=== PATIENT | male | born 1970 | race Caucasian/White ===

== ENCOUNTER 2020-01-26 12:49 | Emergency (ER) | payer BC, OTHER ==
[2020-01-26 12:56] VITALS: TEMP 97.9
[2020-01-26] MEDS ORDERED: KETOROLAC 15 MG/ML 1 ML VIAL IVP STA (13:13)
[2020-01-26] MEDS ORDERED: SODIUM CHLORIDE 0.9% 1,000 ML IV STA (13:13)
[2020-01-26] MEDS ORDERED: ONDANSETRON 4 MG/2 ML VIAL IVP STA (13:13)
[2020-01-26 13:29] LABS: Basophils % (A) 0 %; Eosinophils # (A) 0.1 k/uL (0-0.7); Eosinophils % (A) 1 %; HCT 47.4 % (39.0-53.0); HGB 15.6 gm/dL (13.0-17.5); Lymphocytes # (A) 0.7 k/uL (1.0-4.8); Lymphocytes % (A) 9 %; MCH 29.1 pg (25.0-35.0); MCHC 32.9 g/dL (31.0-37.0); MCV 88.4 fL (80.0-100.0); Mean Platelet Volume 7.8; Monocytes # (A) 0.4 k/uL (0-1.0); Monocytes % (A) 4 %; Neutrophils % (A) 85 %; Platelet Count 193 k/uL (150-450); RBC 5.37 m/uL (4.30-5.90); RDW 13.5 % (11.5-15.5); WBC 8.2 k/uL (3.8-10.6)
[2020-01-26 13:35] LABS: Appearance,Urine Cloudy (Clear); Bacteria,Urine Rare /hpf; Bilirubin,Urine Negative (Negative); Blood,Urine Large (Negative); Budding Yeast,Urine Many /hpf; Color,Urine Light Red; Glucose,Urine (UA) Negative (Negative); Ketones,Urine 3+ (Negative); Leukocyte Esterase,Urine Negative (Negative); Mucus,Urine Moderate /hpf; Nitrite,Urine Negative (Negative); PH, Urine 5.5 (5.0-8.0); Protein,Urine 1+ (Negative); RBC,Urine >182 /hpf (0-5); Specific Gravity,Urine 1.028 (1.001-1.035); Urobilinogen,Urine <2.0 mg/dL (<2.0)
[2020-01-26 13:39] LABS: ALT 20 U/L (4-49); AST 30 U/L (17-59); African American GFR (CKD) >90 (>60 ml/min/1.73 sqM); Albumin 4.4 g/dL (3.5-5.0); Alkaline Phosphatase 69 U/L (38-126); Amylase 80 U/L (30-110); Anion Gap 10 mmol/L; Blood Urea Nitrogen 16 mg/dL (9-20); Calcium 9.5 mg/dL (8.4-10.2); Carbon Dioxide 20 mmol/L (22-30); Chloride 105 mmol/L (98-107); Glucose 105 mg/dL (74-99); Non-African American GFR(CKD) >90 (>60 ml/min/1.73 sqM); Potassium 4.2 mmol/L (3.5-5.1); Sodium 135 mmol/L (137-145); Total Bilirubin 0.9 mg/dL (0.2-1.3); Total Protein 6.4 g/dL (6.3-8.2)
--- NOTE | 2020-01-26 13:52 | ED ---
General Adult HPI - General Chief complaint: Abdominal Pain Stated complaint: kidney stones Time Seen by Provider: 01/26/20 12:57 Source: patient, RN notes reviewed Mode of arrival: ambulatory Limitations: no limitations - History of Present Illness Initial comments: 49-year-old male with a past medical history of hyperlipidemia, kidney stones presents to the emergency department for a chief complaint of left-sided back and lower abdominal pain. Patient reports that this started this morning. States it feels like her previous kidney stone. Does admit to nausea denies vomiting. Denies any fevers. Denies diarrhea.Patient has no other complaints at this time including shortness of breath, chest pain, nausea or vomiting, headache, or visual changes. - Related Data Home Medications Medication Instructions Recorded Confirmed Citalopram Hydrobromide 40 mg PO DAILY 11/28/13 01/26/20 [Citalopram HBr] Atorvastatin [Lipitor] 20 mg PO DAILY 01/26/20 01/26/20 Previous Rx's Medication Instructions Recorded Ketorolac [Toradol] 10 mg PO TID PRN #9 tab 01/26/20 Ondansetron [Zofran ODT] 4 mg PO Q8HR PRN #15 tab 01/26/20 Tamsulosin [Flomax] 0.4 mg PO DAILY #10 cap 01/26/20 Allergies Allergy/AdvReac Type Severity Reaction Status Date / Time No Known Allergies Allergy Verified 01/26/20 13:43 Review of Systems ROS Statement: Those systems with pertinent positive or pertinent negative responses have been documented in the HPI. ROS Other: All systems not noted in ROS Statement are negative. Past Medical History Past Medical History: Hyperlipidemia History of Any Multi-Drug Resistant Organisms: None Reported Additional Past Surgical History / Comment(s): wisdom teeth out, "toungue clipped when i was a baby." Past Psychological History: Anxiety Smoking Status: Never smoker Past Alcohol Use History: None Reported Past Drug Use History: None Reported General Exam Limitations: no limitations General appearance: alert, in no apparent distress Head exam: Present: atraumatic, normocephalic, normal inspection Eye exam: Present: normal appearance, PERRL, EOMI. Absent: scleral icterus, conjunctival injection, periorbital swelling ENT exam: Present: normal exam Neck exam: Present: normal inspection, full ROM. Absent: tenderness, meningismus, lymphadenopathy Respiratory exam: Present: normal lung sounds bilaterally. Absent: respiratory distress, wheezes, rales, rhonchi, stridor Cardiovascular Exam: Present: regular rate, normal rhythm, normal heart sounds. Absent: systolic murmur, diastolic murmur, rubs, gallop, clicks GI/Abdominal exam: Present: soft, normal bowel sounds. Absent: distended, tenderness (No abdominal tenderness), guarding, rebound, rigid Back exam: Absent: CVA tenderness (R), CVA tenderness (L) Course Vital Signs 01/26/20 01/26/20 12:52 14:04 Temperature 97.9 F Pulse Rate 70 67 Respiratory 18 16 Rate Blood Pressure 150/93 131/85 O2 Sat by Pulse 94 L Oximetry Medical Decision Making - Medical Decision Making Vitals are stable. CBC CMP unremarkable. Urinalysis does show 3+ ketones, patient was given a liter of fluids. 182 red blood cells consistent with nephrolithiasis. X-ray KUB is nonspecific. Patient was given Toradol and this significantly helped with his pain. Patient clinically diagnosed with nephrolithiasis given history of kidney stones, pain consistent with kidney stones, and 182 red blood cells in the urine. They are comfortable not having a CAT scan performed to limit radiation exposure. He will follow up with urology , referral given. Medications prescribed for pain. - Lab Data Result diagrams: 01/26/20 13:17 01/26/20 13:17 Lab Results 01/26/20 01/26/20 01/26/20 Range/Units 13:17 13:17 13:17 WBC 8.2 (3.8-10.6) k/uL RBC 5.37 (4.30-5.90) m/uL Hgb 15.6 (13.0-17.5) gm/dL Hct 47.4 (39.0-53.0) % MCV 88.4 (80.0-100.0) fL MCH 29.1 (25.0-35.0) pg MCHC 32.9 (31.0-37.0) g/dL RDW 13.5 (11.5-15.5) % Plt Count 193 (150-450) k/uL Neutrophils % 85 % Lymphocytes % 9 % Monocytes % 4 % Eosinophils % 1 % Basophils % 0 % Neutrophils # 7.0 (1.3-7.7) k/uL Lymphocytes # 0.7 L (1.0-4.8) k/uL Monocytes # 0.4 (0-1.0) k/uL Eosinophils # 0.1 (0-0.7) k/uL Basophils # 0.0 (0-0.2) k/uL Sodium 135 L (137-145) mmol/L Potassium 4.2 (3.5-5.1) mmol/L Chloride 105 (98-107) mmol/L Carbon Dioxide 20 L (22-30) mmol/L Anion Gap 10 mmol/L BUN 16 (9-20) mg/dL Creatinine 0.94 (0.66-1.25) mg/dL Est GFR (CKD-EPI)AfAm >90 (>60 ml/min/1.73 sqM) Est GFR (CKD-EPI)NonAf >90 (>60 ml/min/1.73 sqM) Glucose 105 H (74-99) mg/dL Calcium 9.5 (8.4-10.2) mg/dL Total Bilirubin 0.9 (0.2-1.3) mg/dL AST 30 (17-59) U/L ALT 20 (4-49) U/L Alkaline Phosphatase 69 (38-126) U/L Total Protein 6.4 (6.3-8.2) g/dL Albumin 4.4 (3.5-5.0) g/dL Amylase 80 (30-110) U/L Lipase 272 (23-300) U/L Urine Color Light Red Urine Appearance Cloudy (Clear) Urine pH 5.5 (5.0-8.0) Ur Specific [place] 1.028 (1.001-1.035) Urine Protein 1+ H (Negative) Urine Glucose (UA) Negative (Negative) Urine Ketones 3+ H (Negative) Urine Blood Large H (Negative) Urine Nitrite Negative (Negative) Urine Bilirubin Negative (Negative) Urine Urobilinogen <2.0 (<2.0) mg/dL Ur Leukocyte Esterase Negative (Negative) Urine RBC >182 H (0-5) /hpf Urine Bacteria Rare H (None) /hpf Urine Mucus Moderate H (None) /hpf Urine Yeast (Budding) Many H (None) /hpf Disposition Clinical Impression: Renal colic on left side Disposition: HOME SELF-CARE Condition: Good Instructions (If sedation given, give patient instructions): Kidney Stones (ED) Additional Instructions: Please take Toradol as needed for pain. Take Zofran as needed for nausea. Take Flomax as directed. Follow-up with urology or primary care. Return to the emergency room for any worsening symptoms or fevers. Prescriptions: Tamsulosin [Flomax] 0.4 mg PO DAILY #10 cap Ketorolac [Toradol] 10 mg PO TID PRN #9 tab PRN Reason: Pain Ondansetron [Zofran ODT] 4 mg PO Q8HR PRN #15 tab PRN Reason: Nausea Is patient prescribed a controlled substance at d/c from ED?: No Referrals: Oswaldo Irvin III, MD [Primary Care Provider] - 1-2 days Aleksander Barragan MD [STAFF PHYSICIAN] - 1-2 days Time of Disposition: 14:07
--- NOTE | 2020-01-26 13:53 | XR ---
EXAMINATION TYPE: XR KUB DATE OF EXAM: 01/26/2020 COMPARISON: NONE HISTORY: Pain TECHNIQUE: One view abdominal series FINDINGS: The osseous structures are intact. The bowel gas pattern is nonspecific. Lung bases are clear. Arth ropathy of the hips. Degenerative change of the spine. IMPRESSION: 1. Nonspecific abdomen.
[2020-01-26 14:05] VITALS: BP 131/85; PULSE 67; RESP 16
== END 2020-01-26 14:20 | disposition home or self-care (01) ==
LOC: EC 12:49
DX: N23 Unspecified renal colic (principal); R82.4 Acetonuria; R31.9 Hematuria, unspecified; E78.5 Hyperlipidemia, unspecified; F41.9 Anxiety disorder, unspecified; Z79.899 Other long term (current) drug therapy; Z87.442 Personal history of urinary calculi
CPT/HCPCS: 36415; 80053; 82150; 83690; 85025; 81001; 74018; 99284; 96374; 96375; 96361; J2405; J1885

== ENCOUNTER 2021-03-31 07:37 | Inpatient (IN) | payer BC ==
[2021-03-31] MEDS ORDERED: SODIUM CHLORIDE 0.9% 1,000 ML IV STA (08:00)
--- NOTE | 2021-03-31 08:17 | ED ---
General Adult HPI - General Chief complaint: Abdominal Pain Stated complaint: Poss Kidney Stones Time Seen by Provider: 03/31/21 07:46 Source: patient Mode of arrival: ambulatory Limitations: no limitations - History of Present Illness Initial comments: Dictation was produced using [employer] dictation software. please excuse any grammatical, word or spelling errors. Chief Complaint: 50-year-old male presents to the emergency department for right lower quadrant abdominal pain History of Present Illness: Patient's 50-year-old male he states that he's been having symptoms since yesterday. Patient states that he is having symptoms of nausea. He has history of kidney stones believe that his symptoms or kidney stones. The right lower quadrant. Denies any constitutional symptoms. Mild lightheadedness. Initially started in the mid abdomen to the back now it's localized to the right lower quadrant. No history of appendectomy or abdominal surgery. Denies any history of medical problems. The ROS documented in this emergency department record has been reviewed and confirmed by me. Those systems with pertinent positive or negative responses have been documented in the HPI. All other systems are other negative and/or noncontributory. PHYSICAL EXAM: General Impression: Alert and oriented x3, mildly distressed HEENT: Normocephalic atraumatic, extra-ocular movements intact, pupils equal and reactive to light bilaterally, mucous membranes moist. Cardiovascular: Heart regular rate and rhythm Chest: Able to complete full sentences, no retractions, no tachypnea Abdomen: abdomen soft, palpatory tenderness at McBurney's point with positive rebound tenderness, non-distended, no organomegaly Musculoskeletal: Pulses present and equal in all extremities, no peripheral edema Motor: no focal deficits noted Neurological: CN II-XII grossly intact, no focal motor or sensory deficits noted Skin: Intact with no visualized rashes Psych: Normal affect and mood ED course: 50-year-old male presents emergency department for symptoms concerning for acute appendicitis. Vital signs upon arrival are within acceptable limits. Return evaluation obtained. Mild leukocytosis of 11.8. Metabolic panel is within acceptable limits. Computed tomography scan abdomen and pelvis shows signs of acute appendicitis with small focus very concerning for perforation. Case discussed with Dr. Toure was willing to accept patients care. Patient started on antibiotics. Patient be admitted. EKG interpretation: Ventricular rate 101, sinus tachycardia,. Interval 150, QRS 90, QTc 4:30. No AR prolongation, no QTC prolongation, no ST or T-wave changes noted. No old EKG for comparison Overall, this EKG is nonspecific - Related Data Home Medications Medication Instructions Recorded Confirmed Citalopram Hydrobromide 40 mg PO DAILY 11/28/13 01/26/20 [Citalopram HBr] Atorvastatin [Lipitor] 20 mg PO DAILY 01/26/20 01/26/20 Previous Rx's Medication Instructions Recorded Ketorolac [Toradol] 10 mg PO TID PRN #9 tab 01/26/20 Ondansetron [Zofran ODT] 4 mg PO Q8HR PRN #15 tab 01/26/20 Tamsulosin [Flomax] 0.4 mg PO DAILY #10 cap 01/26/20 Allergies Allergy/AdvReac Type Severity Reaction Status Date / Time No Known Allergies Allergy Verified 03/31/21 07:45 Review of Systems ROS Statement: Those systems with pertinent positive or pertinent negative responses have been documented in the HPI. ROS Other: All systems not noted in ROS Statement are negative. Past Medical History Past Medical History: Hyperlipidemia History of Any Multi-Drug Resistant Organisms: None Reported Additional Past Surgical History / Comment(s): wisdom teeth out, "toungue clipped when i was a baby." Past Psychological History: Anxiety Smoking Status: Never smoker Past Alcohol Use History: None Reported Past Drug Use History: None Reported General Exam Limitations: no limitations Course Vital Signs 03/31/21 07:41 Temperature 97.1 F L Pulse Rate 113 H Respiratory 18 Rate Blood Pressure 118/73 O2 Sat by Pulse 97 Oximetry Medical Decision Making - Lab Data Result diagrams: 03/31/21 08:16 03/31/21 08:16 Lab Results 03/31/21 03/31/21 Range/Units 08:16 08:16 WBC 11.8 H (3.8-10.6) k/uL RBC 5.29 (4.30-5.90) m/uL Hgb 15.8 (13.0-17.5) gm/dL Hct 46.8 (39.0-53.0) % MCV 88.6 (80.0-100.0) fL MCH 29.9 (25.0-35.0) pg MCHC 33.8 (31.0-37.0) g/dL RDW 12.9 (11.5-15.5) % Plt Count 188 (150-450) k/uL MPV 7.8 Neutrophils % 91 % Lymphocytes % 3 % Monocytes % 4 % Eosinophils % 1 % Basophils % 0 % Neutrophils # 10.7 H (1.3-7.7) k/uL Lymphocytes # 0.4 L (1.0-4.8) k/uL Monocytes # 0.5 (0-1.0) k/uL Eosinophils # 0.1 (0-0.7) k/uL Basophils # 0.0 (0-0.2) k/uL Sodium 136 L (137-145) mmol/L Potassium 3.6 (3.5-5.1) mmol/L Chloride 104 (98-107) mmol/L Carbon Dioxide 21 L (22-30) mmol/L Anion Gap 11 mmol/L BUN 16 (9-20) mg/dL Creatinine 0.84 (0.66-1.25) mg/dL Est GFR (CKD-EPI)AfAm >90 (>60 ml/min/1.73 sqM) Est GFR (CKD-EPI)NonAf >90 (>60 ml/min/1.73 sqM) Glucose 131 H (74-99) mg/dL Calcium 9.7 (8.4-10.2) mg/dL Total Bilirubin 1.8 H (0.2-1.3) mg/dL AST 20 (17-59) U/L ALT 15 (4-49) U/L Alkaline Phosphatase 68 (38-126) U/L Total Protein 6.5 (6.3-8.2) g/dL Albumin 4.1 (3.5-5.0) g/dL Lipase 278 (23-300) U/L Disposition Clinical Impression: Acute appendicitis Disposition: ADMITTED IP TO THIS HOSP Condition: Fair Referrals: Oswaldo Irvin III, MD [Primary Care Provider] - 1-2 days
[2021-03-31 08:50] LABS: Basophils % (A) 0 %; Eosinophils # (A) 0.1 k/uL (0-0.7); Eosinophils % (A) 1 %; HCT 46.8 % (39.0-53.0); HGB 15.8 gm/dL (13.0-17.5); Lymphocytes # (A) 0.4 k/uL (1.0-4.8); Lymphocytes % (A) 3 %; MCH 29.9 pg (25.0-35.0); MCHC 33.8 g/dL (31.0-37.0); MCV 88.6 fL (80.0-100.0); Mean Platelet Volume 7.8; Monocytes # (A) 0.5 k/uL (0-1.0); Monocytes % (A) 4 %; Neutrophils # (A) 10.7 k/uL (1.3-7.7); Neutrophils % (A) 91 %; Platelet Count 188 k/uL (150-450); RBC 5.29 m/uL (4.30-5.90); RDW 12.9 % (11.5-15.5); WBC 11.8 k/uL (3.8-10.6)
[2021-03-31 09:10] LABS: ALT 15 U/L (4-49); AST 20 U/L (17-59); African American GFR (CKD) >90 (>60 ml/min/1.73 sqM); Albumin 4.1 g/dL (3.5-5.0); Alkaline Phosphatase 68 U/L (38-126); Anion Gap 11 mmol/L; Blood Urea Nitrogen 16 mg/dL (9-20); Calcium 9.7 mg/dL (8.4-10.2); Carbon Dioxide 21 mmol/L (22-30); Chloride 104 mmol/L (98-107); Glucose 131 mg/dL (74-99); Lipase 278 U/L (23-300); Non-African American GFR(CKD) >90 (>60 ml/min/1.73 sqM); Potassium 3.6 mmol/L (3.5-5.1); Sodium 136 mmol/L (137-145); Total Bilirubin 1.8 mg/dL (0.2-1.3); Total Protein 6.5 g/dL (6.3-8.2)
[2021-03-31] MEDS ORDERED: PIPERACILLIN-TAZOBACTAM 3.375 GM in SODIUM CHLORIDE 0.9% 100 ML IVPB STA (09:22)
--- NOTE | 2021-03-31 09:26 | CT ---
EXAMINATION TYPE: CT abdomen pelvis w con DATE OF EXAM: 03/31/2021 COMPARISON: CT abdomen and pelvis November 28, 2013 HISTORY: Rt sided pain, history of renal stones CT DLP: 1094.2 mGycm, Automated Exposure Control for Dose Reduction was Utilized. CONTRAST: CT scan of the abdomen and pelvis is performed with oral and with IV Contrast, patient injected with 100 mL of Isovue 300. FINDINGS: LUNG BASES: No significant abnormality is appreciated. LIVER/GB: No significant abnormality is appreciated. PANCREAS: No significant abnormality is seen. SPLEEN: No significant abnormality is seen. ADRENALS: No significant abnormality is seen. KIDNEYS: There are a few scattered small simple appearing thin-walled cysts in both kidneys redemonst rated. There is single 4 to 5 mm calculus right kidney mid to lower pole level coronal image 59 now s een. Symmetric cortical medullary uptake and excretion without hydronephrosis bilaterally is present. No intraluminal calculi in the poorly distended bladder. Small amount of free fluid in the pelvis ax ial image 69. BOWEL: Slightly suboptimal evaluation bowel without enteric contrast. There is no suspicious small or large bowel dilatation. There is fluid in the right colon suggesting mild colitis and/or diarrhea. T erminal ileum is fluid-filled coronal image 48. Inferior to this there is abnormal thickened appendix extending into the right pelvis measuring up to 17 mm distally near the tip axial image 65. There is moderate ill-defined fluid and fat stranding. A small focus of extraluminal air is concerning for lo calized perforation near the mid segment axial image 59 and coronal image 43. No well-formed fluid co llection or adjacent abscess identified. There is redundant sigmoid colon extending into the right pe lvis noted. Some reactive mild to moderate wall thickening thought present near axial image 60. PROSTATE/SEMINAL VESICLES: Stable in size, measures within normal limits. LYMPH NODES: No greater than 1cm abdominal or pelvic lymph nodes are appreciated. OSSEOUS STRUCTURES: Moderate to severe disc space narrowing with vacuum disc phenomenon L4-L5 and L5- S1 levels. OTHER: No significant additional abnormality is seen. IMPRESSION: CT findings consistent with a moderate to severe acute appendicitis as detailed above. Sm all focus of air concerning for perforation noted. Case discussed with ordering ER physician via telephone at time of dictation.
[2021-03-31] MEDS ORDERED: NALOXONE 0.4 MG/ML 1 ML VIAL IV PRN (09:35)
[2021-03-31] MEDS ORDERED: MORPHINE SULFATE 4 MG/ML SYRINGE IV PRN (09:35)
[2021-03-31] MEDS ORDERED: DEXTROSE 5%-0.9% NACL 1,000 ML IV SCH (09:45)
[2021-03-31] MEDS: SODIUM CHLORIDE 0.9% 1,000 ML IV SCH ×2 (10:10→17:51)
[2021-03-31] MEDS: HYDROmorphone 1 MG/ML 1 ML SYRINGE IVP PRN ×2 (10:14→13:15)
[2021-03-31] MEDS: ONDANSETRON 4 MG/2 ML VIAL IVP PRN ×2 (10:29→16:53)
[2021-03-31 10:47] LABS: Appearance,Urine Clear (Clear); Bilirubin,Urine Negative (Negative); Blood,Urine Negative (Negative); Color,Urine Yellow; Glucose,Urine (UA) Negative (Negative); Ketones,Urine 2+ (Negative); Leukocyte Esterase,Urine Negative (Negative); Nitrite,Urine Negative (Negative); Protein,Urine Trace (Negative); Urobilinogen,Urine <2.0 mg/dL (<2.0)
--- NOTE | 2021-03-31 11:13 | P.GSHP ---
History of Present Illness H&P Date: 03/31/21 CHIEF COMPLAINT: Abdominal pain HISTORY OF PRESENT ILLNESS: This is a 50-year-old male who presented to the hospital with complaint of right lower quadrant pain that started yesterday morning. He reports the pain came on suddenly. He has been having dry heaves and severe nausea. He's been having chills and sweats. Denies any fever. He had 2 episodes where he passed out for a few seconds in the bathroom. At that time he'll had gotten up to wash his hands and had been having pain and dry he aves. Patient's CAT scan showed evidence of a moderate to severe acute appendicitis. Small focus of air concerning for perforation noted. Patient admitted to surgical service. Patient scheduled for robotic appendectomy today. He is currently on IV antibiotics. Denies any prior history of abdominal surgeries. Denies any cardiac history. Patient does have evidence of leukocytosis and tachycardia. PAST MEDICAL HISTORY: See list. PAST SURGICAL HISTORY: See list. MEDICATIONS: See list. ALLERGIES: See list. SOCIAL HISTORY: No illicit drug use. REVIEW OF SYSTEMS: CONSTITUTIONAL: Denies fever or chills. HEENT: Denies blurred vision, vision changes, or eye pain. Denies hemoptysis ENDOCRINE: Denies heat or cold intolerance. CARDIOVASCULAR: Denies chest pain or pressure. RESPIRATORY: No shortness of breath. GASTROINTESTINAL: Please refer to HPI NEURO: Denies history of seizures. PSYCH: No depression or suicidal ideation HEMATOLOGIC: Denies bleeding disorders. LYMPHATIC: The patient denies any lumps and bumps around the neck. GENITOURINARY: Denies any blood in urine or increased urinary frequency. MUSCULOSKELETAL: Denies myalgias. Denies joint swelling. Denies decreased range of motion beyond patients baseline. SKIN: Denies pruitis. Denies rash. PHYSICAL EXAM: VITAL SIGNS: Reviewed GENERAL: Well-developed in no acute distress. HEENT: No sclera icterus. Extraocular movements grossly intact. Moist buccal mucosa. Head is atraumatic, normocephalic. Hears conversational speech. No nasal drainage. NECK: Supple without lymphadenopathy. CHEST: Non-labored respirations and equal bilateral excursions. CARDIOVASCULAR: Palpable 2+ radial pulses. ABDOMEN: Soft. Nondistended. Right lower quadrant tenderness with palpation. Patient does have pain with movement of his bed MUSCULOSKELETAL: No clubbing or cyanosis. NEUROLOGIC: No focal or lateralizing signs. Cranial nerves II through XII grossly intact. PSYCH: Appropriate affect. Alert and oriented to person, place and time. SKIN: Well perfused. Good skin turgor. LABORATORY DATA: WBC is 11.8 Hgb 15.8 PLT 188 Sodium 136 K3.6 BUN 16 creatinine 0.84 total bili 1.8 AST 20 ALT 15 Lipase 278 IMAGING: CAT scan of abdomen showed evidence of a moderate to severe acute appendicitis. Small focus of air concerning for perforation noted. ASSESSMENT: 1. Acute appendicitis with possible perforation 2. Leukocytosis and tachycardia 3. History of hyperlipidemia PLAN: -Patient scheduled for robotic appendectomy today with Dr. Joya -Keep patient nothing by mouth -Continue IV antibiotics -Continue IV fluids -Continue pain medication as needed -Continue antiemetics Physician Assistant [employer] note has been reviewed by physician. Signing provider agrees with the documented findings, assessment, and plan of care. Past Medical History Past Medical History: Hyperlipidemia History of Any Multi-Drug Resistant Organisms: None Reported Additional Past Surgical History / Comment(s): wisdom teeth out, "toungue clipped when i was a baby." Past Psychological History: Anxiety Smoking Status: Never smoker Past Alcohol Use History: None Reported Past Drug Use History: None Reported Medications and Allergies Home Medications Medication Instructions Recorded Confirmed Type Citalopram Hydrobromide 40 mg PO DAILY 11/28/13 03/31/21 History [Citalopram HBr] Fluticasone Nasal [place] [Flonase 2 spray EA NOSTRIL DAILY 03/31/21 03/31/21 History Nasal [place]] Loratadine [Claritin] 10 mg PO DAILY 03/31/21 03/31/21 History Allergies Allergy/AdvReac Type Severity Reaction Status Date / Time No Known Allergies Allergy Verified 03/31/21 09:47 Surgical - Exam Vital Signs Temp Pulse Resp BP Pulse Ox 97.1 F L 113 H 18 118/73 97 03/31/21 07:41 03/31/21 07:41 03/31/21 07:41 03/31/21 07:41 03/31/21 07:41 Results - Labs 03/31/21 08:16 03/31/21 08:16 Abnormal Lab Results - Last 24 Hours (Table) 03/31/21 03/31/21 Range/Units 08:16 08:16 WBC 11.8 H (3.8-10.6) k/uL Neutrophils # 10.7 H (1.3-7.7) k/uL Lymphocytes # 0.4 L (1.0-4.8) k/uL Sodium 136 L (137-145) mmol/L Carbon Dioxide 21 L (22-30) mmol/L Glucose 131 H (74-99) mg/dL Total Bilirubin 1.8 H (0.2-1.3) mg/dL Diabetes panel 03/31/21 Range/Units 08:16 Sodium 136 L (137-145) mmol/L Potassium 3.6 (3.5-5.1) mmol/L Chloride 104 (98-107) mmol/L Carbon Dioxide 21 L (22-30) mmol/L BUN 16 (9-20) mg/dL Creatinine 0.84 (0.66-1.25) mg/dL Glucose 131 H (74-99) mg/dL Calcium 9.7 (8.4-10.2) mg/dL AST 20 (17-59) U/L ALT 15 (4-49) U/L Alkaline Phosphatase 68 (38-126) U/L Total Protein 6.5 (6.3-8.2) g/dL Albumin 4.1 (3.5-5.0) g/dL Calcium panel 03/31/21 Range/Units 08:16 Calcium 9.7 (8.4-10.2) mg/dL Albumin 4.1 (3.5-5.0) g/dL Pituitary panel 03/31/21 Range/Units 08:16 Sodium 136 L (137-145) mmol/L Potassium 3.6 (3.5-5.1) mmol/L Chloride 104 (98-107) mmol/L Carbon Dioxide 21 L (22-30) mmol/L BUN 16 (9-20) mg/dL Creatinine 0.84 (0.66-1.25) mg/dL Glucose 131 H (74-99) mg/dL Calcium 9.7 (8.4-10.2) mg/dL Adrenal panel 03/31/21 Range/Units 08:16 Sodium 136 L (137-145) mmol/L Potassium 3.6 (3.5-5.1) mmol/L Chloride 104 (98-107) mmol/L Carbon Dioxide 21 L (22-30) mmol/L BUN 16 (9-20) mg/dL Creatinine 0.84 (0.66-1.25) mg/dL Glucose 131 H (74-99) mg/dL Calcium 9.7 (8.4-10.2) mg/dL Total Bilirubin 1.8 H (0.2-1.3) mg/dL AST 20 (17-59) U/L ALT 15 (4-49) U/L Alkaline Phosphatase 68 (38-126) U/L Total Protein 6.5 (6.3-8.2) g/dL Albumin 4.1 (3.5-5.0) g/dL
[2021-03-31 11:19] LABS: Specific Gravity,Urine >1.050 (1.001-1.035)
--- NOTE | 2021-03-31 12:40 | ECHOF ---
Referral Reason:LV function MEASUREMENTS -------- HEIGHT: 167.6 cm WEIGHT: 83.9 kg BP: RVIDd: 3.4 cm (< 3.3) IVSd: 1.2 cm (0.6 - 1.1) LVIDd: 4.7 cm (3.9 - 5.3) LVPWd: 1.2 cm (0.6 - 1.1) IVSs: 1.7 cm LVIDs: 2.9 cm LVPWs: 1.8 cm LA Diam: 3.3 cm (2.7 - 3.8) LAESV Index (A-L): 16.22 ml/m Ao Diam: 3.6 cm (2.0 - 3.7) AV Cusp: 2.1 cm (1.5 - 2.6) MV EXCURSION: 19.089 mm (> 18.000) MV EF SLOPE: 48 mm/s (70 - 150) EPSS: 0.9 cm MV E Zander: 0.68 m/s MV DecT: 149 ms MV A Zander: 0.90 m/s MV E/A Ratio: 0.76 AR PHT: 528 ms FINDINGS -------- Sinus rhythm. This was a technically good study. The left ventricular size is normal. There is borderline concentric left ventricular hypertrophy. Overall left ventricular systolic function is normal with, an EF between 60 - 65 %. The right ventricle is mildly enlarged. Normal LA size by volume 22+/-6 ml/m2. The right atrium is normal in size. Interatrial and interventricular septum intact. There is mild aortic regurgitation. Mild mitral annular calcification present. The tricuspid valve appears structurally normal. Unable to estimate RVSP due to inadequate TR jet s pectral doppler profile. The pulmonic valve was not well visualized. The aortic root size is normal. Normal inferior vena cava with normal inspiratory collapse consistent with estimated right atrial pre ssure of 5 mmHg. There is no pericardial effusion. CONCLUSIONS -------- 1. The left ventricular size is normal. 2. There is borderline concentric left ventricular hypertrophy. 3. Overall left ventricular systolic function is normal with, an EF between 60 - 65 %. 4. The right ventricle is mildly enlarged. 5. There is mild aortic regurgitation. 6. Mild mitral annular calcification present. 7. There is no pericardial effusion. LAMP SHADE SEWER: Kaitlin Velasquez RDCS
--- NOTE | 2021-03-31 12:46 | P.CRDCN ---
History of Present Illness History of present illness: HISTORY OF PRESENTING ILLNESS This is a pleasant 50-year-old with past medical history significant for depression, kidney stones and recent diagnosis of appendicitis. He states he has been in fairly good health however started getting abdominal pain which was in the lower mid abdomen since yesterday. It slowly got worse and is now mainly focused in the right lower quadrant. He denies any fevers however did have some mild chill feeling. Denies any chest pain, pressure, shortness breath. He is somewhat diaphoretic. EKG shows normal sinus rhythm with minimal criteria for LVH and minimal ST depression in the inferior and lateral leads. He denies any chest pain, pressure, shortness breath. He states he is easily able to walk up a flight of stairs without any dyspnea and normally does not do frequent exercise however "chases his 9-year-old around ". No family history of coronary artery disease, no tobacco, no illicits, no alcohol. He did have an episode where he was in the bathroom and had been straining and had intense pain feeling nauseous and then apparently lost consciousness. No prior history of syncope. REVIEW OF SYSTEMS At the time of my exam: CONSTITUTIONAL: Denies fever, +chills. CARDIOVASCULAR: Denies chest pain, shortness of breath, orthopnea, PND or p alpitations. RESPIRATORY: Denies cough. GASTROINTESTINAL: +abdominal pain, no diarrhea, constipation, nausea or vomiting. MUSCULOSKELETAL: Denies myalgias. NEUROLOGIC: Denies numbness, tingling or weakness. ENDOCRINE: Denies fatigue, weight change, polydipsia or polyurina. GENITOURINARY: Denies burning, hematuria or urgency with micturation. HEMATOLOGIC: Denies history of anemia or bleeding. PHYSICAL EXAMINATION Vital signs reviewed. CONSTITUTIONAL: Mildly ill-appearing HEENT: Head is normocephalic. Pupils are equal, round. Sclerae anicteric. Mucous membranes of the mouth are moist. No JVD. No carotid bruit. CHEST EXAMINATION: Lungs are clear to auscultation. No chest wall tenderness is noted on palpation or with deep breathing. HEART EXAMINATION: Regular rate and rhythm. S1, S2 heard. No murmurs, gallops or rub. ABDOMEN: +tender EXTREMITIES: 2+ peripheral pulses, no lower extremity edema and no calf tenderness. NEUROLOGIC EXAMINATION: Patient is awake, alert and oriented x3. ASSESSMENT 1. Preoperative cardiovascular examination 2. Acute appendicitis 3. Syncope 4. Abnormal EKG 5. Aortic insufficiency PLAN Patient overall had been doing fairly well up until his abdominal pain and acute appendicitis. He did have a syncopal episode which appears likely vasovagal related to intense pain. He denies any prior syncopal type episodes and is not having any significant angina-type symptoms. He is able to do more than 4 METS of activity. Echocardiogram reviewed with normal left ventricular function. Patient is cleared from a cardiology standpoint for surgery. Past Medical History Past Medical History: Hyperlipidemia History of Any Multi-Drug Resistant Organisms: None Reported Additional Past Surgical History / Comment(s): wisdom teeth out, "toungue clipped when i was a baby." Past Anesthesia/Blood Transfusion Reactions: No Reported Reaction Past Psychological History: Anxiety Smoking Status: Never smoker Past Alcohol Use History: None Reported Past Drug Use History: None Reported Medications and Allergies Home Medications Medication Instructions Recorded Confirmed Type Citalopram Hydrobromide 40 mg PO DAILY 11/28/13 03/31/21 History [Citalopram HBr] Fluticasone Nasal [place] [Flonase 2 spray EA NOSTRIL DAILY 03/31/21 03/31/21 History Nasal [place]] Loratadine [Claritin] 10 mg PO DAILY 03/31/21 03/31/21 History Allergies Allergy/AdvReac Type Severity Reaction Status Date / Time No Known Allergies Allergy Verified 03/31/21 09:47 Physical Exam Vitals: Vital Signs Temp Pulse Pulse Resp BP BP Pulse Ox 03/31/21 12:03 100.3 F H 95 16 138/79 92 L 03/31/21 11:10 99.7 F H 03/31/21 10:30 100.8 F H 79 18 131/73 03/31/21 07:41 97.1 F L 113 H 18 118/73 97 Intake and Output 03/30/21 03/31/21 03/31/21 22:59 06:59 14:59 Other: Weight 83.915 kg Results 03/31/21 08:16 03/31/21 08:16 Cardiac Enzymes 03/31/21 Range/Units 08:16 AST 20 (17-59) U/L CBC 03/31/21 Range/Units 08:16 WBC 11.8 H (3.8-10.6) k/uL RBC 5.29 (4.30-5.90) m/uL Hgb 15.8 (13.0-17.5) gm/dL Hct 46.8 (39.0-53.0) % Plt Count 188 (150-450) k/uL Comprehensive Metabolic Panel 03/31/21 Range/Units 08:16 Sodium 136 L (137-145) mmol/L Potassium 3.6 (3.5-5.1) mmol/L Chloride 104 (98-107) mmol/L Carbon Dioxide 21 L (22-30) mmol/L BUN 16 (9-20) mg/dL Creatinine 0.84 (0.66-1.25) mg/dL Glucose 131 H (74-99) mg/dL Calcium 9.7 (8.4-10.2) mg/dL AST 20 (17-59) U/L ALT 15 (4-49) U/L Alkaline Phosphatase 68 (38-126) U/L Total Protein 6.5 (6.3-8.2) g/dL Albumin 4.1 (3.5-5.0) g/dL Current Medications Generic Name Dose Route Start Last Admin Trade Name Freq PRN Reason Stop Dose Admin Acetaminophen 650 mg 03/31/21 09:35 Acetaminophen Tab 325 Mg Tab PO Q6HR PRN Mild Pain or Fever > 100.5 Enoxaparin Sodium 30 mg 04/01/21 09:00 Enoxaparin 30 Mg/0.3 Ml Syringe SQ DAILY JAYCE Hydromorphone HCl 1 mg 03/31/21 09:35 03/31/21 10:14 Hydromorphone 1 Mg/Ml 1 Ml Syringe IVP 1 mg Q3HR PRN Administration Moderate to Severe Pain Piperacillin Sod/Tazobactam 100 mls @ 25 mls/hr 03/31/21 16:00 Sod 3.375 gm/ Sodium Chloride IVPB Q8HR JAYCE Cefazolin Sodium 2 gm/ Sodium 50 mls @ 100 mls/hr 03/31/21 07:00 Chloride IVPB 03/31/21 23:00 ONCE PRN Pre-Op Dextrose/Sodium Chloride 1,000 mls @ 83 mls/hr 03/31/21 09:45 Dextrose 5%-Ns Iv Soln IV .Q12H3M JAYCE Sodium Chloride 1,000 mls @ 130 mls/hr 03/31/21 09:45 03/31/21 10:10 Saline 0.9% IV 130 mls/hr .Q7H42M JAYCE Administration Morphine Sulfate 4 mg 03/31/21 09:35 Morphine Sulfate 4 Mg/Ml Syringe IV Q4HR PRN Severe Pain Naloxone HCl 0.2 mg 03/31/21 09:35 Naloxone 0.4 Mg/Ml 1 Ml Vial IV Q2M PRN Opioid Reversal Ondansetron HCl 4 mg 03/31/21 09:35 03/31/21 10:29 Ondansetron 4 Mg/2 Ml Vial IVP 4 mg Q6HR PRN Administration Nausea Pantoprazole Sodium 40 mg 04/01/21 09:00 Pantoprazole 40 Mg/10 Ml Vial IV DAILY JAYCE Intake and Output 03/30/21 03/31/21 03/31/21 22:59 06:59 14:59 Other: Weight 83.915 kg Patient Weight 04/01/21 06:59 Weight 83.915 kg 03/31/21 08:16 03/31/21 08:16
[2021-03-31] MEDS: ACETAMINOPHEN TAB 325 MG TAB PO PRN (13:53)
[2021-03-31] MEDS: PIPERACILLIN-TAZOBACTAM 3.375 GM in SODIUM CHLORIDE 0.9% 100 ML IVPB SCH (15:47)
[2021-03-31] MEDS ORDERED: IV FLUID CONTINUATION 1,000 ML IV ONE ×3 (16:35)
[2021-03-31] MEDS ORDERED: DEXAMETHASONE SOD PHOSPHATE 4 MG/ML 1 ML VIAL IVP ONE (16:52)
--- NOTE | 2021-03-31 17:04 | P.HPADDEND ---
H&P Addendum H&P Addendum Date: 03/31/21 Has peritonitis with ruptured appendicitis. Recommend robotic appendectomy.
[2021-03-31] MEDS ORDERED: fentaNYL (PF) 50 MCG/ML 2 ML AMP IVP ONE (17:06)
[2021-03-31] MEDS ORDERED: HEPARIN SODIUM,PORCINE/PF 5,000 UNIT/0.5 ML SYRINGE SQ ONE (17:07)
[2021-03-31] MEDS ORDERED: HEPARIN SODIUM,PORCINE 5,000 UNIT/ML 1 ML VIAL IV ONE (17:08)
[2021-03-31] MEDS ORDERED: fentaNYL (PF) 50 MCG/ML 2 ML AMP ONE (17:36)
[2021-03-31] MEDS ORDERED: LIDOCAINE 1% INJ 10MG/ML (20 ML MDV) ONE (17:36)
[2021-03-31] MEDS ORDERED: SUCCINYLCHOLINE CHLORIDE 100 MG/5 ML SYR IV ONE (17:36)
[2021-03-31] MEDS ORDERED: ROCURONIUM 10 MG/ML (5 ML VIAL) IV ONE (17:36)
[2021-03-31] MEDS ORDERED: HYDROmorphone (PF) 1 MG/ML ONE (17:36)
[2021-03-31] MEDS ORDERED: KETOROLAC 15 MG/ML 1 ML VIAL ONE (17:36)
[2021-03-31] MEDS ORDERED: NEOSTIGMINE 1 MG/ML 10 ML VIAL ONE (17:36)
[2021-03-31] MEDS ORDERED: PROPOFOL 10 MG/ML 20 ML VIAL IV ONE (17:36)
[2021-03-31] MEDS ORDERED: MIDAZOLAM 2 MG/2 ML VIAL ONE (17:36)
[2021-03-31] MEDS ORDERED: DEXAMETHASONE SOD PHOSPHATE 10 MG/ML 1 ML VIAL ONE (17:36)
[2021-03-31] MEDS ORDERED: GLYCOPYRROLATE 0.2 MG/ML 2 ML VIAL ONE (17:36)
[2021-03-31] MEDS ORDERED: ONDANSETRON 4 MG/2 ML VIAL ONE (17:36)
[2021-03-31] MEDS ORDERED: LACTATED RINGERS 1,000 ML IV ONE (17:50)
[2021-03-31] MEDS ORDERED: BUPIVACAIN-EPI 0.25%-1:200,000 30 ML VIAL SQ ONE (18:13)
--- NOTE | 2021-03-31 19:12 | P.OP ---
Date of Procedure: 03/31/21 Description of Procedure: SURGEON: NEPTALI WALKER MD Preoperative Diagnosis: 1. Acute appendicitis with peritonitis and sepsis 2. Depressive disorder 3. Generalized anxiety disorder Postoperative Diagnosis: 1. Gangrenous ruptured appendicitis with appendiceal abscess 2. Depressive disorder 3. Generalized anxiety disorder Procedure(s) Performed: 1. Robotic-assisted daVinci Xi laparoscopic appendectomy with drainage of periappendiceal abscess 2. Placement of PHYLICIA drain #19 right lower quadrant/pelvis 3. Peritoneal lavage 1000 mL normal saline Anesthesia: GETA, local Estimated Blood Loss (ml): 5 Pathology: other (appendix, aerobic and anerobic culture of peritoneal fluid from peritonitis) Condition: stable Disposition: floor Operative Findings: 1. Localized abscess over 20-mL drained right lower quadrant 2. Gangrenous ruptured purulent appendicitis including base of appendix 3. Abdomen irrigated with 1000-mL normal saline 4. PHYLICIA drain placed at right lower quadrant of abscess pocket drained 5. Appendix resected at base 6. Staple line hemostatic 7. Small right indirect inguinal hernia without incarceration INDICATIONS: The patient is a 50-year-old male who presents with acute appendicitis including fevers and peritonitis consistent with sepsis. Surgical intervention was described in detail. Patient requested robotic-assisted technique. Benefits and risks, including infection, open surgery, and possibility for additional surgery was discussed at length. Informed consent was obtained. All questions of the patient and family were answered. DESCRIPTION: The patient was transferred to the operating room and placed in supine position. The patient had previously voided. The abdomen was then prepped and draped in standard sterile fashion as Ioban was placed along the abdomen to minimize any contamination of skin floor. After a timeout protocol was performed, attention was then brought to the left upper quadrant whereby a 0 degree 5 mm laparoscopic trocar entry was performed. The abdominal cavity was entered and insufflated to 15 mmHg pressure, which was tolerated well. Diagnostic laparoscopy demonstrated no injury to bowel, viscera or mesentery. Adhesions were confirmed of the right lower quadrant of omentum, small bowel to the abdominal wall. Localized abscess was found. An indirect small right inguinal hernia was identified. Next a robotic 12-mm trocar was placed along the left upper quadrant after exchanging the 5 mm trocar. A 8 mm port was placed along the left lower quadrant and another 8-mm port left lateral abdominal wall. Ports were placed 10 cm apart from each other including 15-20 cm away from the target anatomy of the right pelvis. The patient was then placed in Trendelenburg position, at least 7 and right side up at least 7. The robotic da Regan XI system was primed and docked from the left side of the patient. Using atraumatic graspers and vessel sealer, the robotic system was docked and primed as described. Instruments were interchanged by the seed laboratory assistant including graspers, robotic stapler and vessel sealer. Next, attention was brought to identify the cecum. A systematic view within the abdominal cavity was started with the small bowel which was remarkable for diffuse fibrinous exudate throughout the pelvis. The base of the cecum was with inflammation and ischemia. The appendix was ruptured near the base with moderate dissection performed. The abscess of 20-mL was aspirated from the abdomen. Robotic blue 45 mm staple load was fired along the base of the appendix. The staple line was hemostatic and viable. Hemostasis was checked prior to undocking the robot. The abdomen was irrigated with 1000 mL normal saline to the aspirant was clear. The robot was undocked. I re-scrubbed into the case. A round #19 drain was placed via the left lower quadrant port and positioned at the right lower quadrant and pelvis. A drain stitch 2-0 nylon was placed with the bulb attached separately. The specimen was removed from the abdominal cavity with an Endo Catch bag through the 12 mm trocar at the left upper quadrant. All instruments and pneumoperitoneum were evacuated from the abdominal cavity. Local anesthetic was infiltrated to all wounds for postop analgesia. All incisions were also cleansed with diluted hydrogen peroxide. An Optifoam surgical dressing was placed over the left upper quadrant port site including drain site as he has elevated risk for infection. The patient had tolerated the procedure well. The patient was extubated successfully. The patient was transferred to the postanesthesia care unit in stable condition. Patient's Madeleine was notified over the telephone.
[2021-03-31] MEDS: KETOROLAC 30 MG/ML 1 ML VIAL IVP SCH (22:00)
[2021-04-01] MEDS: ACETAMINOPHEN IV (For NPO) 1,000 MG in EMPTY BAG 1 BAG IVPB SCH ×2 (00:06→05:59)
[2021-04-01] MEDS: KETOROLAC 30 MG/ML 1 ML VIAL IVP SCH ×4 (00:29→19:58)
[2021-04-01] MEDS: HYDROmorphone 1 MG/ML 1 ML SYRINGE IVP PRN ×3 (00:38→19:58)
[2021-04-01] MEDS: PIPERACILLIN-TAZOBACTAM 3.375 GM in SODIUM CHLORIDE 0.9% 100 ML IVPB SCH ×3 (00:40→16:29)
[2021-04-01] MEDS: SODIUM CHLORIDE 0.9% 1,000 ML IV SCH ×3 (02:55→19:59)
[2021-04-01] MEDS: ENOXAPARIN 30 MG/0.3 ML SYRINGE SQ SCH (09:26)
[2021-04-01] MEDS: PANTOPRAZOLE 40 MG/10 ML VIAL IV SCH (09:27)
--- NOTE | 2021-04-01 09:50 | P.PN ---
Subjective Progress Note Date: 04/01/21 HISTORY OF PRESENTING ILLNESS This is a pleasant 50-year-old with past medical history significant for dep ression, kidney stones and recent diagnosis of appendicitis. He states he has been in fairly good health however started getting abdominal pain which was in the lower mid abdomen since yesterday. It slowly got worse and is now mainly focused in the right lower quadrant. He denies any fevers however did have some mild chill feeling. Denies any chest pain, pressure, shortness breath. He is somewhat diaphoretic. EKG shows normal sinus rhythm with minimal criteria for LVH and minimal ST depression in the inferior and lateral leads. He denies any chest pain, pressure, shortness breath. He states he is easily able to walk up a flight of stairs without any dyspnea and normally does not do frequent exercise however "chases his 9-year-old around ". No family history of coronary artery disease, no tobacco, no illicits, no alcohol. He did have an episode where he was in the bathroom and had been straining and had intense pain feeling nauseous and then apparently lost consciousness. No prior history of syncope. 04/01/2021 Patient examined this morning in the chair. He is s/p robotic-assisted laparoscopic appendectomy with drainage of periappendiceal abscess with placement of PHYLICIA drain secondary to acute appendicitis with peritonitis and sepsis. Patient states his pain has significantly improved this morning. He denies chest pain or pressure. Denies shortness of breath. Denies dizziness or lightheadedness. Denies any further episodes of syncope. PHYSICAL EXAMINATION Vital signs reviewed. HEENT: Head is normocephalic. Pupils are equal, round. Sclerae anicteric. Mucous membranes of the mouth are moist. No JVD. No carotid bruit. CHEST EXAMINATION: Lungs are clear to auscultation. No chest wall tenderness is noted on palpation or with deep breathing. HEART EXAMINATION: Regular rate and rhythm. S1, S2 heard. No murmurs, gallops or rub. ABDOMEN: +abdominal tendereness secondary to surgery, improved from yesterday. PHYLICIA drain noted. EXTREMITIES: 2+ peripheral pulses, no lower extremity edema and no calf tenderness. NEUROLOGIC EXAMINATION: Patient is awake, alert and oriented x3. ASSESSMENT 1. Preoperative cardiovascular examination 2. Gangrenous ruptured appendicitis with abscess and sepsis 3. Syncope, likely vasovagal related to intense pain 4. Abnormal EKG 5. Aortic insufficiency PLAN Patient remains stable from a cardiac standpoint. No further inpatient recommendations. We will sign off. Please reconsult if needed. Nurse practitioner note has been reviewed by physician. Signing provider agrees with the documented findings, assessment, and plan of care. Objective - Vital Signs Vital signs: Vital Signs Temp 97.6 F 04/01/21 07:00 Pulse 65 04/01/21 07:00 Resp 18 04/01/21 07:00 BP 101/66 04/01/21 07:00 Pulse Ox 97 04/01/21 07:00 Intake & Output 03/31/21 04/01/21 04/01/21 18:59 06:59 18:59 Intake Total 1380 650 118 Output Total 5 50 Balance 1375 600 118 Weight 83.915 kg Intake: IV 900 50 Intake, IV Titration 480 Amount Sodium Chloride 0.9% 1, 480 000 ml @ 130 mls/hr IV . Q7H42M [facility] Rx#:[id number] Oral 600 118 Output: Drainage 50 Left Lower Abdomen 50 Estimated Blood Loss 5 Other: Voiding Method Toilet Toilet Urinal # Voids 3 0 - Labs CBC & Chem 7: 03/31/21 08:16 03/31/21 08:16 Labs: Abnormal Lab Results - Last 24 Hours (Table) 03/31/21 Range/Units 08:16 Ur Specific [place] >1.050 H (1.001-1.035) Urine Protein Trace H (Negative) Urine Ketones 2+ H (Negative)
--- NOTE | 2021-04-01 11:58 | P.PN ---
Subjective Progress Note Date: 04/01/21 CHIEF COMPLAINT: Abdominal pain HISTORY OF PRESENT ILLNESS: Patient is status post Robotic-assisted daVinci Xi laparoscopic appendectomy with drainage of periappendiceal abscess for gangrenous ruptured appendicitis with appendiceal abscess. Patient sitting up at bedside chair. He reports that his pain is controlled. He denies any nausea or vomiting. No flatus. He was able to tolerate a regular diet. Afebrile. Labs for today are pending. PHYLICIA drain 50 mL cloudy sanguinous output. Patient seen evaluated by cardiology service for syncopal episode and cardiac risk assessment. PHYSICAL EXAM: VITAL SIGNS: Reviewed GENERAL: Well-developed in no acute distress. HEENT: No sclera icterus. Extraocular movements grossly intact. Moist buccal mucosa. Head is atraumatic, normocephalic. Hears conversational speech. No nasal drainage. NECK: Supple without lymphadenopathy. CHEST: Non-labored respirations and equal bilateral excursions. CARDIOVASCULAR: Palpable 2+ radial pulses. ABDOMEN: Soft. Nondistended. Incision sites clean dry and intact with PHYLICIA drain MUSCULOSKELETAL: No clubbing or cyanosis. NEUROLOGIC: No focal or lateralizing signs. Cranial nerves II through XII grossly intact. PSYCH: Appropriate affect. Alert and oriented to person, place and time. SKIN: Well perfused. Good skin turgor. ASSESSMENT: 1. Gangrenous ruptured appendicitis with appendiceal abscess status post Robotic-assisted daVinci Xi laparoscopic appendectomy with drainage of periappendiceal abscess 2. Depressive disorder 3. Generalized anxiety disorder PLAN: -Continue IV antibiotics -Continue pain medication as needed -Continue regular diet -Encouraged patient to ambulate -Encouraged patient to use incentive spirometer -GI prophylaxis Protonix and DVT prophylaxis Lovenox Physician Testing Analyst note has been reviewed by physician. Signing provider agrees with the documented findings, assessment, and plan of care. Objective - Vital Signs Vital signs: Vital Signs Temp 97.6 F 04/01/21 07:00 Pulse 65 04/01/21 07:00 Resp 18 04/01/21 07:00 BP 101/66 04/01/21 07:00 Pulse Ox 97 04/01/21 07:00 Intake & Output 03/31/21 04/01/21 04/01/21 18:59 06:59 18:59 Intake Total 1380 650 118 Output Total 5 50 Balance 1375 600 118 Weight 83.915 kg Intake: IV 900 50 Intake, IV Titration 480 Amount Sodium Chloride 0.9% 1, 480 000 ml @ 130 mls/hr IV . Q7H42M [facility] Rx#:[id number] Oral 600 118 Output: Drainage 50 Left Lower Abdomen 50 Estimated Blood Loss 5 Other: Voiding Method Toilet Toilet Urinal # Voids 3 0 - Labs CBC & Chem 7: 03/31/21 08:16 03/31/21 08:16
[2021-04-01 13:31] LABS: Basophils % (A) 0 %; Eosinophils % (A) 0 %; HCT 42.3 % (39.0-53.0); HGB 13.7 gm/dL (13.0-17.5); Lymphocytes # (A) 0.6 k/uL (1.0-4.8); Lymphocytes % (A) 6 %; MCH 29.8 pg (25.0-35.0); MCHC 32.4 g/dL (31.0-37.0); MCV 91.9 fL (80.0-100.0); Mean Platelet Volume 8.7; Monocytes # (A) 0.4 k/uL (0-1.0); Monocytes % (A) 4 %; Neutrophils # (A) 9.1 k/uL (1.3-7.7); Neutrophils % (A) 89 %; Platelet Count 189 k/uL (150-450); RBC 4.61 m/uL (4.30-5.90); RDW 13.1 % (11.5-15.5); WBC 10.2 k/uL (3.8-10.6)
[2021-04-01 13:47] LABS: ALT 17 U/L (4-49); AST 22 U/L (17-59); African American GFR (CKD) >90 (>60 ml/min/1.73 sqM); Albumin 3.6 g/dL (3.5-5.0); Albumin/Globulin Ratio 1.4; Alkaline Phosphatase 54 U/L (38-126); Anion Gap 8 mmol/L; Blood Urea Nitrogen 24 mg/dL (9-20); Calcium 8.7 mg/dL (8.4-10.2); Carbon Dioxide 24 mmol/L (22-30); Chloride 103 mmol/L (98-107); Globulin 2.5 g/dL; Glucose 121 mg/dL (74-99); Non-African American GFR(CKD) >90 (>60 ml/min/1.73 sqM); Sodium 135 mmol/L (137-145); Total Protein 6.1 g/dL (6.3-8.2)
[2021-04-02] MEDS: PIPERACILLIN-TAZOBACTAM 3.375 GM in SODIUM CHLORIDE 0.9% 100 ML IVPB SCH ×3 (00:01→15:26)
[2021-04-02] MEDS: SODIUM CHLORIDE 0.9% 1,000 ML IV SCH ×4 (00:01→19:04)
[2021-04-02] MEDS: HYDROmorphone 1 MG/ML 1 ML SYRINGE IVP PRN ×3 (03:01→15:25)
[2021-04-02] MEDS: KETOROLAC 30 MG/ML 1 ML VIAL IVP SCH ×4 (05:43→18:26)
[2021-04-02] MEDS: CITALOPRAM HYDROBROMIDE 20 MG TAB PO SCH (08:57)
[2021-04-02] MEDS: ENOXAPARIN 30 MG/0.3 ML SYRINGE SQ SCH (08:57)
[2021-04-02] MEDS: PANTOPRAZOLE 40 MG/10 ML VIAL IV SCH (08:58)
[2021-04-02 09:16] LABS: Basophils # (A) 0.01 X 10*3/uL (0.00-0.10); Basophils % (A) 0.1 %; Eosinophils % (A) 1.4 %; HCT 34.9 % (39.6-50.0); HGB 11.1 g/dL (13.0-17.0); Lymphocytes # (A) 0.91 X 10*3/uL (0.90-5.00); Lymphocytes % (A) 12.9 %; MCH 29.2 pg (27.0-32.0); MCHC 31.8 g/dL (32.0-37.0); MCV 91.8 fL (80.0-97.0); Mean Platelet Volume 11.1 fL (9.5-12.2); Monocytes % (A) 7.1 %; Neutrophils # (A) 5.51 X 10*3/uL (1.80-7.70); Neutrophils % (A) 77.8 %; Platelet Count 153 X 10*3/uL (140-440); RDW 13.9 % (11.5-14.5); WBC 7.08 X 10*3/uL (4.50-10.00)
--- NOTE | 2021-04-02 11:46 | CDI ---
Documentation Clarification Form Date: 04/02/2021 11:32:27 AM From: Lorraine Silva RN CCDS Admit Date: 03/31/2021 07:12:00 PM Patient Name: Tom Garza Visit Number: [id number] Discharge Date: ATTENTION: The Clinical Documentation Specialists (CDI) and [facility] Coding Staff appreciate your assistance in clarifying documentation. Please respond to the clarification below the line at the bottom and electronically sign. The CDI & [facility] Coding staff will review the response and follow-up if needed. Please note: Queries are made part of the Legal Health Record. If you have any questions, please contact the author of this message via ITS. Dr. Kristina Joya Sepsis is documented in the procedure note, 03/31, but is not noted in subsequent documentation. Clarification is requested. History/Risk Factors: 50-year-old male presents to the ED with right lower quadrant pain that started the morning before presentation. The patient has dry heaves, nausea, chills and sweats. Medical history: HLD. 03/31, H&P. Clinical Indicators: VSS 03/31 B/P 118/73, HR 113, RR 18, SpO2 97% ra , Temp 97.1 F oral LABS 03/31 Wbc 11.8, Neutrophils 10.7 CT ABD 03/31 Moderate to severe acute appendicitis, small focus of air concerning for perforation. Procedure Note 03/31 Pre-operative Acute appendicitis with peritonitis and sepsis. Post-Operative Gangrenous ruptured appendicitis with appendiceal abscess. Treatment: 03/31 0.9NS IV bolus x1, 03/31 - current 0.9NS 130cc/hr IV, 03/31 Appendectomy with drainage of angel appendiceal abscess. 03/31 to current Zosyn 3.375 gm IVPB Q8HR. Please clarify if the Sepsis is: [ X ] Sepsis confirmed, remains under treatment [ ] Sepsis confirmed, resolved [ ] Sepsis ruled out [ ] Other condition, please specify [ ] Unable to determine (Template Last Revised: July 2020) KM 04/05/21 11:30 LEN
[2021-04-02] MEDS: TAMSULOSIN 0.4 MG CAP.ER.24H PO SCH (13:48)
--- NOTE | 2021-04-02 16:39 | P.PN ---
Subjective Progress Note Date: 04/02/21 CHIEF COMPLAINT: Abdominal pain HISTORY OF PRESENT ILLNESS: Patient is status post Robotic-assisted daVinci Xi laparoscopic appendectomy with drainage of periappendiceal abscess for gangrenous ruptured appendicitis with appendiceal abscess. Patient sitting up at bedside chair. He does report abdominal pain. It is controlled with pain medication. He is having issues with Zeng emptying his bladder. He denies any nausea or vomiting. Tolerating regular diet. Afebrile. WBC is 7.08 Hgb 11.1 PHYSICAL EXAM: VITAL SIGNS: Reviewed GENERAL: Well-developed in no acute distress. HEENT: No sclera icterus. Extraocular movements grossly intact. Moist buccal mucosa. Head is atraumatic, normocephalic. Hears conversational speech. No nasal drainage. NECK: Supple without lymphadenopathy. CHEST: Non-labored respirations and equal bilateral excursions. CARDIOVASCULAR: Palpable 2+ radial pulses. ABDOMEN: Soft. Nondistended. Incision sites clean dry and intact with PHYLICIA drain with 60 mL of cloudy serosanguineous output MUSCULOSKELETAL: No clubbing or cyanosis. NEUROLOGIC: No focal or lateralizing signs. Cranial nerves II through XII grossly intact. PSYCH: Appropriate affect. Alert and oriented to person, place and time. SKIN: Well perfused. Good skin turgor. ASSESSMENT: 1. Gangrenous ruptured appendicitis with appendiceal abscess status post Robotic-assisted daVinci Xi laparoscopic appendectomy with drainage of periappendiceal abscess 2. Depressive disorder 3. Generalized anxiety disorder 4. Urinary retention PLAN: -Check postvoid residuals. Patient may require Zeng catheter in place still showing evidence of urinary retention -Add Flomax -Continue antibiotics -Continue pain medication as needed -Continue regular diet -Encouraged patient to ambulate -Encouraged patient to use incentive spirometer -GI prophylaxis Protonix and DVT prophylaxis Lovenox Physician Agricultural Research Technologist note has been reviewed by physician. Signing provider agrees with the documented findings, assessment, and plan of care. Objective - Vital Signs Vital signs: Vital Signs Temp 99.2 F 04/02/21 14:45 Pulse 81 04/02/21 14:45 Resp 17 04/02/21 14:45 BP 118/71 04/02/21 14:45 Pulse Ox 95 04/02/21 14:45 Intake & Output 04/01/21 04/02/21 04/02/21 18:59 06:59 18:59 Intake Total 954 1000 180 Output Total 60 55 Balance 954 940 125 Intake: Oral 954 1000 180 Output: Drainage 60 55 Left Lower Abdomen 60 55 Other: Voiding Method Toilet Toilet Urinal Urinal # Voids 2 2 - Labs CBC & Chem 7: 04/02/21 05:32 04/01/21 13:13 Labs: Abnormal Lab Results - Last 24 Hours (Table) 04/02/21 Range/Units 05:32 RBC 3.80 L (4.40-5.60) X 10*6/uL Hgb 11.1 L (13.0-17.0) g/dL Hct 34.9 L (39.6-50.0) % MCHC 31.8 L (32.0-37.0) g/dL Immature Gran # 0.05 H (0.00-0.04) X 10*3/uL Microbiology - Last 24 Hours (Table) 03/31/21 10:25 Blood Culture - Preliminary Blood No Growth after 48 hours 03/31/21 10:35 Blood Culture - Preliminary Blood No Growth after 48 hours 03/31/21 19:00 Gram Stain - Preliminary Appendix Wound Culture - Preliminary Gram Neg Bacilli 03/31/21 19:00 Anaerobic Culture - Preliminary Appendix
[2021-04-03] MEDS: PIPERACILLIN-TAZOBACTAM 3.375 GM in SODIUM CHLORIDE 0.9% 100 ML IVPB SCH ×4 (00:12→23:40)
[2021-04-03] MEDS: KETOROLAC 30 MG/ML 1 ML VIAL IVP SCH ×4 (00:13→17:09)
[2021-04-03] MEDS: PANTOPRAZOLE 40 MG/10 ML VIAL IV SCH (07:38)
[2021-04-03] MEDS: CITALOPRAM HYDROBROMIDE 20 MG TAB PO SCH (07:38)
[2021-04-03] MEDS: TAMSULOSIN 0.4 MG CAP.ER.24H PO SCH (07:38)
[2021-04-03] MEDS: SODIUM CHLORIDE 0.9% 1,000 ML IV SCH ×4 (07:39→23:41)
[2021-04-03] MEDS: ENOXAPARIN 30 MG/0.3 ML SYRINGE SQ SCH (07:39)
--- NOTE | 2021-04-03 11:27 | P.PN ---
Progress Note - Text Progress Note Date: 04/03/21 Patient still has some complaints of incisional pain. On exam vital signs are stable. Abdomen soft. Status post appendectomy with peritonsillar abscess. Patient will receive IV antibiotics.
[2021-04-03] MEDS: ACETAMINOPHEN TAB 325 MG TAB PO PRN (14:23)
[2021-04-03] MEDS: HYDROmorphone 1 MG/ML 1 ML SYRINGE IVP PRN (22:26)
[2021-04-04] MEDS: ENOXAPARIN 30 MG/0.3 ML SYRINGE SQ SCH (08:12)
[2021-04-04] MEDS: PIPERACILLIN-TAZOBACTAM 3.375 GM in SODIUM CHLORIDE 0.9% 100 ML IVPB SCH ×3 (08:12→23:48)
[2021-04-04] MEDS: PANTOPRAZOLE 40 MG TABLET PO SCH (08:12)
[2021-04-04] MEDS: TAMSULOSIN 0.4 MG CAP.ER.24H PO SCH (08:12)
[2021-04-04] MEDS: CITALOPRAM HYDROBROMIDE 20 MG TAB PO SCH (08:12)
[2021-04-04] MEDS ORDERED: metroNIDAZOLE-NS PMX 500 MG in SALINE 1 100ML.BAG IVPB SCH (12:00)
--- NOTE | 2021-04-04 13:01 | P.PN ---
Progress Note - Text Progress Note Date: 04/04/21 Patient's complaints of right lower quadrant pain. On exam vital signs are stable. Abdomen soft. Incision sites clean and intact Status post laparoscopic appendectomy for acute appendicitis with abscess. Patient to receive IV antibiotics
[2021-04-04] MEDS: SODIUM CHLORIDE 0.9% 1,000 ML IV SCH ×2 (16:46→21:37)
[2021-04-04] MEDS: metroNIDAZOLE-NS PMX 500 MG in SALINE 1 100ML.BAG IVPB SCH (21:35)
[2021-04-04] MEDS: HYDROmorphone 1 MG/ML 1 ML SYRINGE IVP PRN (23:52)
[2021-04-05] MEDS: metroNIDAZOLE-NS PMX 500 MG in SALINE 1 100ML.BAG IVPB SCH ×2 (04:21→08:24)
[2021-04-05] MEDS: SODIUM CHLORIDE 0.9% 1,000 ML IV SCH (05:31)
[2021-04-05 08:11] VITALS: BP 127/82; PULSE 68; RESP 18; TEMP 99
[2021-04-05] MEDS: ENOXAPARIN 30 MG/0.3 ML SYRINGE SQ SCH (08:22)
[2021-04-05] MEDS: CITALOPRAM HYDROBROMIDE 20 MG TAB PO SCH (08:23)
[2021-04-05] MEDS: PANTOPRAZOLE 40 MG TABLET PO SCH (08:23)
[2021-04-05] MEDS: TAMSULOSIN 0.4 MG CAP.ER.24H PO SCH (08:23)
[2021-04-05] MEDS: ACETAMINOPHEN TAB 325 MG TAB PO PRN (08:33)
--- NOTE | 2021-04-05 09:22 | P.DS ---
Providers Date of admission: 03/31/21 19:12 Expected date of discharge: 04/05/21 Attending physician: Kristina Joya Primary care physician: Oswaldo Irvin - Discharge Diagnosis(es) (1) Sepsis Current Visit: Yes Status: Acute (2) Acute appendicitis Current Visit: Yes Status: Acute (3) Peritonitis Current Visit: Yes Status: Acute (4) Perforated appendicitis Current Visit: Yes Status: Acute Hospital Course: Postoperative Diagnosis: 1. Gangrenous ruptured appendicitis with appendiceal abscess 2. Depressive disorder 3. Generalized anxiety disorder COURSE: The patient is a 50-year-old male who presented with acute appendicitis including fevers, tachycardia and peritonitis consistent with sepsis. He underwent appendectomy with features of perforated appendicitis. Patient was placed on antibiotics. PHYLICIA drain was placed. Prior to discharge, sepsis resolved. He was tolerating diet. Pain was well-controlled. Patient was stable for discharge. Discharge instructions including removal of PHYLICIA drain and office reviewed. Procedures: Procedure(s) Performed: 1. Robotic-assisted daVinci Xi laparoscopic appendectomy with drainage of periappendiceal abscess 2. Placement of PHYLICIA drain #19 right lower quadrant/pelvis 3. Peritoneal lavage 1000 mL normal saline Anesthesia: GETA, local Estimated Blood Loss (ml): 5 Pathology: other (appendix, aerobic and anerobic culture of peritoneal fluid from peritonitis) Condition: stable Disposition: floor Operative Findings: 1. Localized abscess over 20-mL drained right lower quadrant 2. Gangrenous ruptured purulent appendicitis including base of appendix 3. Abdomen irrigated with 1000-mL normal saline 4. PHYLICIA drain placed at right lower quadrant of abscess pocket drained 5. Appendix resected at base 6. Staple line hemostatic 7. Small right indirect inguinal hernia without incarceration Patient Condition at Discharge: Good Plan - Discharge Summary Discharge Rx Participant: No New Discharge Prescriptions: New Acetaminophen Tab [Tylenol Tab] 1,000 mg PO Q6HR PRN #30 tablet PRN Reason: Pain Ibuprofen [Motrin] 600 mg PO Q8HR PRN #30 tab PRN Reason: Pain Continue Citalopram Hydrobromide [Citalopram HBr] 40 mg PO DAILY Fluticasone Nasal [place] [Flonase Nasal [place]] 2 spray EA NOSTRIL DAILY Loratadine [Claritin] 10 mg PO DAILY Discharge Medication List Citalopram Hydrobromide [Citalopram HBr] 40 mg PO DAILY 11/28/13 [History] Fluticasone Nasal [place] [Flonase Nasal [place]] 2 spray EA NOSTRIL DAILY 03/31/21 [History] Loratadine [Claritin] 10 mg PO DAILY 03/31/21 [History] Acetaminophen Tab [Tylenol Tab] 1,000 mg PO Q6HR PRN #30 tablet 04/05/21 [Rx] Ibuprofen [Motrin] 600 mg PO Q8HR PRN #30 tab 04/05/21 [Rx] Follow up Appointment(s)/Referral(s): Ashok Jack DO [STAFF PHYSICIAN] - 1 Week Oswaldo Irvin III, MD [Primary Care Provider] - 1-2 days Kristina Joya MD [STAFF PHYSICIAN] - 04/13/21 Patient Instructions/Handouts: Appendicitis (GEN), David-Dave Drain Care (ED), Laparoscopic Appendectomy (GEN) Activity/Diet/Wound Care/Special Instructions: No lifting over 10 pounds in 2 weeks until Apr 14. September shower. No bath tub soaks for two weeks until Apr 14 Diet as tolerated. Use Tylenol, simethicone and ibuprofen or Aleve scheduled for the next 24-48 hours for best pain relief. Use ice along incisions for today to prevent swelling. Discharge Disposition: HOME SELF-CARE
[2021-04-05] MEDS: PIPERACILLIN-TAZOBACTAM 3.375 GM in SODIUM CHLORIDE 0.9% 100 ML IVPB SCH (09:55)
[2021-04-05 10:20] LABS: Basophils % (A) 0 %; Eosinophils # (A) 0.3 k/uL (0-0.7); Eosinophils % (A) 5 %; HGB 13.2 gm/dL (13.0-17.5); Lymphocytes # (A) 0.9 k/uL (1.0-4.8); Lymphocytes % (A) 13 %; MCH 29.6 pg (25.0-35.0); MCHC 33.1 g/dL (31.0-37.0); MCV 89.5 fL (80.0-100.0); Mean Platelet Volume 7.7; Monocytes # (A) 0.4 k/uL (0-1.0); Monocytes % (A) 6 %; Neutrophils # (A) 4.8 k/uL (1.3-7.7); Neutrophils % (A) 74 %; Platelet Count 235 k/uL (150-450); RBC 4.47 m/uL (4.30-5.90); RDW 13.5 % (11.5-15.5); WBC 6.5 k/uL (3.8-10.6)
[2021-04-05 10:31] LABS: ALT 24 U/L (4-49); AST 26 U/L (17-59); African American GFR (CKD) >90 (>60 ml/min/1.73 sqM); Albumin 3.1 g/dL (3.5-5.0); Albumin/Globulin Ratio 1.3; Alkaline Phosphatase 45 U/L (38-126); Anion Gap 4 mmol/L; Blood Urea Nitrogen 9 mg/dL (9-20); Calcium 8.4 mg/dL (8.4-10.2); Carbon Dioxide 28 mmol/L (22-30); Chloride 106 mmol/L (98-107); Globulin 2.3 g/dL; Glucose 88 mg/dL (74-99); Non-African American GFR(CKD) >90 (>60 ml/min/1.73 sqM); Potassium 3.7 mmol/L (3.5-5.1); Sodium 138 mmol/L (137-145); Total Bilirubin 0.6 mg/dL (0.2-1.3); Total Protein 5.4 g/dL (6.3-8.2)
== END 2021-04-05 12:10 | disposition home or self-care (01) | DRG 853 ==
LOC: EC 07:37 → 6NMEDSUR 09:42 → OBSVTOIN 19:12
PROVIDERS: ADMIT Surgery Plastic and Reconstructive Surgery; ATTEND Surgery Plastic and Reconstructive Surgery
PROC: 8E0W4CZ Robotic Assisted Procedure of Trunk Region, Percutaneous Endoscopic Approach (ICD-10-PCS; 2021-03-31)
PROC: 3E1M48Z Irrigation of Peritoneal Cavity using Irrigating Substance, Percutaneous Endoscopic Approach (ICD-10-PCS; 2021-03-31)
PROC: 0DTJ4ZZ Resection of Appendix, Percutaneous Endoscopic Approach (ICD-10-PCS; principal; 2021-03-31 12:30)
DX: A41.9 Sepsis, unspecified organism (principal); K35.33 Acute appendicitis with perforation, localized peritonitis, and gangrene, with abscess; I96 Gangrene, not elsewhere classified; E78.5 Hyperlipidemia, unspecified; F32.A Depression, unspecified; F41.1 Generalized anxiety disorder; I35.1 Nonrheumatic aortic (valve) insufficiency; K40.90 Unilateral inguinal hernia, without obstruction or gangrene, not specified as recurrent; Z20.822 Contact with and (suspected) exposure to COVID-19; Z87.442 Personal history of urinary calculi; Z79.899 Other long term (current) drug therapy
CPT/HCPCS: 36415; 74177; 80053; 81003; 83690; 85025; 87040; 87070; 87075; 87077; 87186; 87205; 87635; 88304; 93005; 93306; 96361; 96365; 99285

== ENCOUNTER → 2023-07-06 | Outpatient (CLI) | payer BC ==
--- NOTE | 2023-07-06 11:09 | P.SLEEP ---
History of Present Illness DATE: 07/06/2023 CONSULTATION/NEW PATIENT EVALUATION HISTORY OF PRESENT ILLNESS/SLEEP-WAKE EVALUATION: 52-year-old gentleman had been evaluated in the sleep center for obstructive sleep apnea hypopnea syndrome. Patient had been diagnosed with obstructive sleep apnea about 14 years ago. Since that time she is on treatment with BiPAP and continued to use equipment every night. I checked BiPAP unit. Unit is old. Pressure 10/6 cm of water. BPAP unit does not have information about apnea-hypopnea index SLEEP SCHEDULE: Usually sleep schedule from 9 PM to 4:30 AM on weekdays and from 9 PM to 7 AM on weekend. FALLING ASLEEP: No problems with falling asleep. DURING SLEEP: Patient snores and wakes up at least 3-4 times while using his BiPAP equipment. No history of hypnogogical hallucinations, sleep paralysis, or cataplexy. DURING THE DAY/WAKE STATE: In the morning patient wake up tired, falling asleep during the day, has problems with memory, concentration, depression and anxiety. [place] sleepiness scale is significantly increased to 12. Usually patient doesn't take naps. PAST MEDICAL HISTORY: Hypertension, sinuses problems, headaches, anxiety, depression. PAST SURGICAL HISTORY: Appendectomy. MEDICATIONS: Buspiron 5 mg twice a day, amlodipine 10 mg once a day, montelukast 10 mg once a day, hydroxyzine 25 mg 1-2 tablets at night, desvenlafaxine 100 mg once a day in the morning. SOCIAL HISTORY: Negative for smoking or using alcohol. FAMILY HISTORY: Hypertension. REVIEW OF SYSTEMS: Snoring, multiple awakenings from sleep, sleepiness during the day. No fevers. No double vision. No recent chest pain. No shortness of breath. No abdominal pain. No bleeding episodes. No blood in urine. No seizure episodes. PHYSICAL EXAMINATION: GENERAL: A pleasant patient without any distress. VITAL SIGNS: BP 146/93, HR 78, RR 12, weight 192.8 pounds, height 5 foot 5.5 inches, body mass index 31.4. HEENT: PERRLA, EOMI. Evaluation of oropharynx showed tongue protrudes midline, low position of soft palate Mallampati 4. NECK: Supple. No JVD. Thyroid is not palpable. 17 inches in circumference. LUNGS: Clear to percussion and to auscultation. Good air exchange. No wheezing or rhonchi. HEART: S1, S2 regular. No murmurs, gallops or rubs. ABDOMEN: Soft and nontender. Bowel sounds are present. No organomegaly appreciated. EXTREMITIES: No clubbing or cyanosis. FILTER CLOTH MAKER: Awake, alert, and oriented x3. Cranial nerves 2 to 7 intact. There is no fasciculation or atrophy noted. No focal deficits observed. ASSESSMENT: 1. Loud snoring, multiple awakenings from sleep, extremely low position of soft palate Mallampati 4, wide neck 17 inches in circumference, sleepiness with [place] Sleepiness Scale 12, history of obstructive sleep apnea. Obstructive sleep apnea hypopnea syndrome not in good control on BiPAP treatment at the present time. 2. Hypertension. 3. Sinuses problems. 4. Headaches. 5 anxiety. 6 . Depression. 7. Status post appendectomy. PLAN: 1. Home sleep apnea test for evaluation of patient's breathing during sleep. 2. Following plan after reading sleep test. 3. Preferable position during sleep on the side. 4. No driving if patient feels any sleepiness. Patient is aware of civil and criminal liability for unsafe driving. 5. Sleep hygiene with regular sleep time for at least 7.5-8 hours. 6. Watching weight. Thank you very much for referring this patient for consultation. Sincerely, Gary Alvarado MD, PhD, FAASM. Diplomat of [place] [employer], Sleep Medicine Board by [place] [employer] [place] [employer] Director Of [employer] [facility] [place] Past Medical History Past Medical History: Hyperlipidemia History of Any Multi-Drug Resistant Organisms: None Reported Additional Past Surgical History / Comment(s): wisdom teeth out, "toungue clipped when i was a baby." Past Anesthesia/Blood Transfusion Reactions: No Reported Reaction Past Psychological History: Anxiety Smoking Status: Never smoker Past Alcohol Use History: None Reported Past Drug Use History: None Reported Medications and Allergies Home Medications Medication Instructions Recorded Confirmed Type Citalopram Hydrobromide 40 mg PO DAILY 11/28/13 03/31/21 History [Citalopram HBr] Fluticasone Nasal [place] [Flonase 2 spray EA NOSTRIL DAILY 03/31/21 03/31/21 History Nasal [place]] Loratadine [Claritin] 10 mg PO DAILY 03/31/21 03/31/21 History Acetaminophen Tab [Tylenol Tab] 1,000 mg PO Q6HR PRN #30 tablet 04/05/21 Rx Ibuprofen [Motrin] 600 mg PO Q8HR PRN #30 tab 04/05/21 Rx metroNIDAZOLE [Flagyl] 500 mg PO TID #30 tab 04/05/21 Rx Allergies Allergy/AdvReac Type Severity Reaction Status Date / Time No Known Allergies Allergy Verified 03/31/21 16:48 Sleep Note - Sleep Note Sleep Note: Temperature: Pulse Rate: Respiratory Rate: Blood Pressure: SpO2: Height: Weight: BMI: Neck Circumference:
== END ==
LOC: 3 N SLEEP 10:23
PROVIDERS: ATTEND Internal Medicine
DX: G47.33 Obstructive sleep apnea (adult) (pediatric) (principal); G47.8 Other sleep disorders; G47.10 Hypersomnia, unspecified; I10 Essential (primary) hypertension; R51.9 Headache, unspecified; F41.9 Anxiety disorder, unspecified; F32.A Depression, unspecified; J34.89 Other specified disorders of nose and nasal sinuses; Z98.890 Other specified postprocedural states; Z90.89 Acquired absence of other organs
CPT/HCPCS: 99211

== ENCOUNTER 2023-09-20 19:36 | Outpatient (CLI) | payer BC ==
--- NOTE | 2023-09-21 11:08 | P.PCN ---
Description of Procedure: CLINICAL: Titration with positive air pressure has been done for correction of respiratory abnormalities during sleep. DESCRIPTION OF PROCEDURE: The standard montage for clinical polysomnography included the electroencephalogram, the electrocardiogram, the mentalis surface electromyography and Lead II cardiography. The respiratory battery consisted of measurements of nasal /buccal air flow, pressure transducer measurements from the nose, thoracic and /or abdominal effort and intercostal surface electromyography. Video monitoring has been done to check for any parasomnia events. Nocturnal oxyhemoglobin saturations were obtained by finger oximetry. Step-rose titration with positive airway pressure was utilized to control respiratory events. Raw data of sleep recording has been reviewed and is adequate. RESULTS: Sleep efficiency was decreased to 80.2%. Latency to sleep onset was borderline 26.5 minutes.]. Sleep architecture showed stage N1 was short 2.9%, Delta sleep decreased to 4.1%, REM sleep was decreased to 10.7%. Heart rate was minimum 70 BPM, maximum 80 BPM, average 74 BPM. EMG showed 13.4 periodic limb movements per hour with 2.3 micriarousals per hour. PAP titration have been done with CPAP up to the pressure 16 cm H2O. Respiration normalized on CPAP. IMPRESSION: 1. Obstructive sleep apnea hypopnea syndrome on controle with PAP treatment. 2. Very mild periodic limb movements have been documented. Please see other impressions from consultation. PLAN: 1. The patient will have treatment with positive air pressure equipment with the level of pressure AutoPAP 5-15 cm H2O and should use it every night for the whole night. 2. Watching weight. 3. Sleep hygiene with regular time in bed for at least 8 hours. 4. No driving if feeling any sleepiness. 5. I will see the patient for follow up visit to explain the results of the test, recommendations, check compliance with treatment and make any necessary adjustment related to mask fitting, pressure and humidification. 6. Please check iron profile including ferritin level. Low level of iron may increase risk for periodic limb movements Thank you very much for allowing me to participate in the management of your patient. Sincerely, Gary Alvarado MD, PhD, FAASM Diplomat of [place] [employer] Sleep Medicine Board of [place] [employer] Community Services Officer of [facility] [place]
== END 2023-09-21 05:30 | disposition home or self-care (01) ==
LOC: 3 N SLEEP 19:36
PROVIDERS: ATTEND Internal Medicine
DX: G47.33 Obstructive sleep apnea (adult) (pediatric) (principal); G47.61 Periodic limb movement disorder
CPT/HCPCS: 95811

== ENCOUNTER 2023-10-14 14:54 | Emergency (ER) | payer BC ==
[2023-10-14 15:00] VITALS: RESP 20
--- NOTE | 2023-10-14 16:13 | ED ---
General Adult HPI - General Chief complaint: Extremity Injury, Lower Stated complaint: Swelling in both legs Time Seen by Provider: 10/14/23 16:02 Source: patient, family, RN notes reviewed Mode of arrival: ambulatory Limitations: no limitations - History of Present Illness Initial comments: Patient is a 53-year-old male present to the emergency department with concerns with leg edema. Onset of symptoms was around a week ago. No history of similar symptoms previously. Patient did have an episode of some calf discomfort prior to edema which he felt was similar to a muscle spasm. No chest pain. No dyspnea. No exertional dyspnea. No orthopnea. No calf discomfort since that isolated episode. - Related Data Home Medications Medication Instructions Recorded Confirmed Citalopram Hydrobromide 40 mg PO DAILY 11/28/13 03/31/21 [Citalopram HBr] Fluticasone Nasal [place] [Flonase 2 spray EA NOSTRIL DAILY 03/31/21 03/31/21 Nasal [place]] Loratadine [Claritin] 10 mg PO DAILY 03/31/21 03/31/21 Previous Rx's Medication Instructions Recorded Acetaminophen Tab [Tylenol Tab] 1,000 mg PO Q6HR PRN #30 tablet 04/05/21 Ibuprofen [Motrin] 600 mg PO Q8HR PRN #30 tab 04/05/21 metroNIDAZOLE [Flagyl] 500 mg PO TID #30 tab 04/05/21 Furosemide [Lasix] 20 mg PO BID #6 tab 10/14/23 Allergies Allergy/AdvReac Type Severity Reaction Status Date / Time No Known Allergies Allergy Verified 10/14/23 15:00 Review of Systems ROS Statement: Those systems with pertinent positive or pertinent negative responses have been documented in the HPI. ROS Other: All systems not noted in ROS Statement are negative. Constitutional: Denies: fever ENT: Denies: ear pain Respiratory: Denies: cough, dyspnea, wheezes, hemoptysis Cardiovascular: Denies: chest pain, dyspnea on exertion, orthopnea Past Medical History Past Medical History: Hypertension, Sleep Apnea/CPAP/BIPAP History of Any Multi-Drug Resistant Organisms: None Reported Past Surgical History: Appendectomy Additional Past Surgical History / Comment(s): wisdom teeth out, "toungue clipped when i was a baby." Past Anesthesia/Blood Transfusion Reactions: No Reported Reaction Past Psychological History: Anxiety Smoking Status: Never smoker Past Alcohol Use History: None Reported Past Drug Use History: None Reported General Exam Limitations: no limitations General appearance: alert, in no apparent distress Head exam: Present: normocephalic Eye exam: Present: normal appearance Neck exam: Present: normal inspection Respiratory exam: Present: normal lung sounds bilaterally. Absent: rales Cardiovascular Exam: Present: regular rate, normal rhythm, normal heart sounds. Absent: tachycardia GI/Abdominal exam: Present: soft. Absent: tenderness Extremities exam: Present: pedal edema. Absent: calf tenderness Neurological exam: Present: alert. Absent: motor sensory deficit Psychiatric exam: Present: normal affect, normal mood Skin exam: Present: normal color Course Vital Signs 10/14/23 14:56 Temperature 97.8 F Pulse Rate 85 Respiratory 20 Rate Blood Pressure 132/89 O2 Sat by Pulse 98 Oximetry EKG Findings - EKG Results: EKG: interpreted by CLAUS (LVH criteria), sinus rhythm, normal axis, normal ST/T Medical Decision Making - Medical Decision Making Was pt. sent in by a medical professional or institution (, PA, BATTERY CHARGER CONVEYOR LINE, urgent care, hospital, or prison...) When possible be specific @ -No Did you speak to anyone other than the patient for history (EMS, parent, family, police, friend...)? What history was obtained from this source @ -No Did you review nursing and triage notes (agree or disagree)? Why? @ -I reviewed and agree with nursing and triage notes Were old charts reviewed (outside hosp., previous admission, EMS record, old EKG, old radiological studies, urgent care reports/EKG's, prison records)? Report findings @ -No old charts were reviewed Differential Diagnosis (chest pain, altered mental status, abdominal pain women, abdominal pain men, vaginal bleeding, weakness, fever, dyspnea, syncope, headache, dizziness, GI bleed, back pain, seizure, CVA, palpatations, mental health, musculoskeletal)? @ -Differential Dyspnea: Coronary syndrome, arrhythmia, tamponade, asthma, COPD, pulmonary embolism, pneumonia, pneumothorax, pulmonary effusion, anaphylaxis, diabetic ketoacidosis, flailed chest, pulmonary contusion, diaphragmatic rupture, anemia, neuromuscular, this is not meant to be an all-inclusive list. EKG interpreted by me (3pts min.). @ -As above X-rays interpreted by me (1pt min.). @ -Chest x-ray shows no acute process CT interpreted by me (1pt min.). @ -None done U/S interpreted by me (1pt. min.). @ -Ultrasound without evidence of DVT What testing was considered but not performed or refused? (CT, X-rays, U/S, labs)? Why? @ -None What meds were considered but not given or refused? Why? @ -None Did you discuss the management of the patient with other professionals (professionals i.e. , PA, BATTERY CHARGER CONVEYOR LINE, lab, RT, psych nurse, social service worker, assembler erector, teacher, bank operations officer, block and case maker)? Give summary @ -No Was smoking cessation discussed for >3mins.? @ -No Was critical care preformed (if so, how long)? @ -No Were there social determinants of health that impacted care today? How? (Homelessness, low income, unemployed, alcoholism, drug addiction, transportation, low edu. Level, literacy, decrease access to med. care, longterm, rehab)? @ -No Was there de-escalation of care discussed even if they declined (Discuss DNR or withdrawal of care, Hospice)? DNR status @ -No What co-morbidities impacted this encounter? (DM, HTN, Smoking, COPD, CAD, Cancer, CVA, ARF, Chemo, Hep., AIDS, mental health diagnosis, sleep apnea, morbid obesity)? @ -None Was patient admitted / discharged? Hospital course, mention meds given and route, prescriptions, significant lab abnormalities, going to OR and other pertinent info. @ -Patient reevaluated. Patient and family updated on results and need for follow-up. Patient does have primary and is agreeable. Undiagnosed new problem with uncertain prognosis? @ -No Drug Therapy requiring intensive monitoring for toxicity (Heparin, Nitro, Insulin, Cardizem)? @ -No Were any procedures done? @ -No Diagnosis/symptom? @ -Leg edema Acute, or Chronic, or Acute on Chronic? @ -Acute Uncomplicated (without systemic symptoms) or Complicated (systemic symptoms)? @ -Default Side effects of treatment? @ -No Exacerbation, Progression, or Severe Exacerbation? @ -No Poses a threat to life or bodily function? How? (Chest pain, USA, PA, pneumonia, PE, COPD, DKA, ARF, appy, cholecystitis, CVA, Diverticulitis, Homicidal, Suicidal, threat to staff... and all critical care pts) @ -No - Lab Data Result diagrams: 10/14/23 16:48 10/14/23 16:48 Lab Results 10/14/23 10/14/23 10/14/23 Range/Units 16:48 16:48 16:48 WBC 6.0 (3.8-10.6) k/uL RBC 5.17 (4.30-5.90) m/uL Hgb 15.3 (13.0-17.5) gm/dL Hct 46.3 (39.0-53.0) % MCV 89.6 (80.0-100.0) fL MCH 29.6 (25.0-35.0) pg MCHC 33.0 (31.0-37.0) g/dL RDW 13.9 (11.5-15.5) % Plt Count 175 (150-450) k/uL MPV 8.6 Neutrophils % 71 % Lymphocytes % 17 % Monocytes % 6 % Eosinophils % 4 % Basophils % 1 % Neutrophils # 4.3 (1.3-7.7) k/uL Lymphocytes # 1.0 (1.0-4.8) k/uL Monocytes # 0.4 (0-1.0) k/uL Eosinophils # 0.2 (0-0.7) k/uL Basophils # 0.1 (0-0.2) k/uL PT 10.1 (10.0-12.5) sec INR 0.9 (<1.2) APTT 22.5 (22.0-30.0) sec Sodium 138 (137-145) mmol/L Potassium 4.6 (3.5-5.1) mmol/L Chloride 111 H (98-107) mmol/L Carbon Dioxide 21 L (22-30) mmol/L Anion Gap 6 mmol/L BUN 23 H (9-20) mg/dL Creatinine 0.82 (0.66-1.25) mg/dL Est GFR (CKD-EPI)AfAm >90 (>60 ml/min/1.73 sqM) Est GFR (CKD-EPI)NonAf >90 (>60 ml/min/1.73 sqM) Glucose 87 (74-99) mg/dL Calcium 8.9 (8.4-10.2) mg/dL Magnesium 2.1 (1.6-2.3) mg/dL Total Bilirubin 0.6 (0.2-1.3) mg/dL AST 32 (17-59) U/L ALT 25 (4-49) U/L Alkaline Phosphatase 52 (38-126) U/L NT-Pro-B Natriuret Pep <20 pg/mL Total Protein 6.6 (6.3-8.2) g/dL Albumin 4.4 (3.5-5.0) g/dL Disposition Clinical Impression: Leg edema Disposition: HOME SELF-CARE Condition: Stable Instructions (If sedation given, give patient instructions): Leg Edema (ED) Additional Instructions: Prescription sent to pharmacy. Please do follow-up with your primary care physician beginning of the week. Return for chest pain, difficulty breathing, increased swelling, fever, pain, worsening or changing symptoms or other concerns. Prescriptions: Furosemide [Lasix] 20 mg PO BID #6 tab Is patient prescribed a controlled substance at d/c from ED?: No Referrals: Shauna Bullock DO [Primary Care Provider] - 1-2 days Time of Disposition: 19:37
--- NOTE | 2023-10-14 17:04 | XR ---
EXAMINATION TYPE: XR chest 2V DATE OF EXAM: 10/14/2023 COMPARISON: None INDICATION: Difficulty breathing TECHNIQUE: Frontal and lateral views of the chest are obtained. FINDINGS: The heart size is normal. The pulmonary vasculature is normal. The lungs are clear. There is some flattening diaphragms. Consider some emphysematous change IMPRESSION: 1. No acute pulmonary process. 2. Clinical consideration for emphysema
[2023-10-14] MEDS: FUROSEMIDE 10 MG/ML 4 ML VIAL IV STA (17:54)
[2023-10-14 18:11] LABS: Basophils # (A) 0.1 k/uL (0-0.2); Basophils % (A) 1 %; Eosinophils # (A) 0.2 k/uL (0-0.7); Eosinophils % (A) 4 %; HCT 46.3 % (39.0-53.0); HGB 15.3 gm/dL (13.0-17.5); Lymphocytes % (A) 17 %; MCH 29.6 pg (25.0-35.0); MCV 89.6 fL (80.0-100.0); Mean Platelet Volume 8.6; Monocytes # (A) 0.4 k/uL (0-1.0); Monocytes % (A) 6 %; Neutrophils # (A) 4.3 k/uL (1.3-7.7); Neutrophils % (A) 71 %; Platelet Count 175 k/uL (150-450); RBC 5.17 m/uL (4.30-5.90); RDW 13.9 % (11.5-15.5)
[2023-10-14 18:20] LABS: ALT 25 U/L (4-49); AST 32 U/L (17-59); African American GFR (CKD) >90 (>60 ml/min/1.73 sqM); Albumin 4.4 g/dL (3.5-5.0); Alkaline Phosphatase 52 U/L (38-126); Anion Gap 6 mmol/L; Blood Urea Nitrogen 23 mg/dL (9-20); Calcium 8.9 mg/dL (8.4-10.2); Carbon Dioxide 21 mmol/L (22-30); Chloride 111 mmol/L (98-107); Glucose 87 mg/dL (74-99); Magnesium 2.1 mg/dL (1.6-2.3); Non-African American GFR(CKD) >90 (>60 ml/min/1.73 sqM); Sodium 138 mmol/L (137-145); Total Bilirubin 0.6 mg/dL (0.2-1.3); Total Protein 6.6 g/dL (6.3-8.2)
[2023-10-14 18:26] LABS: INR 0.9 (<1.2); Partial Thromboplastin Time 22.5 sec (22.0-30.0); Prothrombin Time 10.1 sec (10.0-12.5)
[2023-10-14 18:29] LABS: NT-Pro-B-Type Natriuretic Pept <20 pg/mL
--- NOTE | 2023-10-14 18:40 | US ---
EXAMINATION TYPE: US venous doppler duplex LE BI DATE OF EXAM: 10/14/2023 6:31 PM COMPARISON: NONE CLINICAL INDICATION: Male, 53 years old with history of edema; Edema for 1 week SIDE PERFORMED: bilateral TECHNIQUE: The lower extremity deep venous system is examined utilizing real time linear array sonog jose martin with graded compression, doppler sonography and color-flow sonography. VESSELS IMAGED: Common Femoral Vein Deep Femoral Vein Greater Saphenous Vein * Femoral Vein Popliteal Vein Small Saphenous Vein * Proximal Calf Veins (* superficial vessels) Right Leg: No evidence of DVT Left Leg: No evidence of DVT IMPRESSION: 1. Bilateral lower extremity ultrasound negative for deep venous thrombosis.
[2023-10-14 19:03] LABS: Potassium 4.6 mmol/L (3.5-5.1)
[2023-10-14 20:36] VITALS: BP 128/94; PULSE 83; TEMP 98.7
== END 2023-10-14 20:00 | disposition home or self-care (01) ==
LOC: EC 14:54
DX: R60.0 Localized edema (principal)
CPT/HCPCS: 36415; 93005; 83880; 80053; 83735; 85025; 85610; 85730; 71046; 93970; 99284; 96374; J1940

== ENCOUNTER → 2024-01-31 | Outpatient (CLI) | payer BC ==
[2024-01-31 16:29] VITALS: BP 130/88; PULSE 97; RESP 14; TEMP 99.2
--- NOTE | 2024-01-31 17:05 | P.PROGSL ---
Subjective DATE: 01/31/2024 FOLLOW UP VISIT. Patient with obstructive sleep apnea hypopnea syndrome return to sleep center for follow-up visit. Information from previous visit have been reviewed. This is first visit after patient received new CPAP unit. I discussed results of sleep studies with patient in details. Patient is using PAP equipment every night for the whole night, getting PAP supplies in time. The patient does not have significant problems with the mask, PAP unit and humidification. Mar[place] sleepiness scale is 7, which showed improvements comparing with Marquez Sleepiness Scale during consultation when it was 12. I checked information from PAP unit. PAP unit pressure 5-15, average 9.4 cm H2O. Usage is 100% for more then 4 hours, average 7.5 hours per night. Leak is 5.8 l/m, which is in acceptable range. Apnea Hypopnea Index is 7.9, which include central apnea index 4.6 and obstructive index 2.6, hypopnea index 0.6. MEDICATIONS have been reviewed, please see below. During physical exam: GENERAL: A pleasant patient without any distress. VITAL SIGNS: Please see below, weight is 201.2 lbs. HEENT: PERRLA, EOMI.low position of soft palate, Mallapati 4 . NECK: Supple. No JVD. LUNGS: Clear to percussion and to auscultation. Good air exchange. No wheezing or rhonchi. HEART: S1, S2 regular. ABDOMEN: Soft and nontender.[] EXTREMITIES: No clubbing or cyanosis. CYBER INSTRUCTOR: Awake, alert, and oriented x3. No focal deficit. Impressions: 1. Obstructive sleep apnea-hypopnea syndrome. Patient demonstrated great compliance with treatment, benefiting from treatment. Apnea-hypopnea index slightly increased mostly with relationship to central events. 2. Hypertension. 3. History of headaches. 4. Sinus problems. 5. History of anxiety. 6. History of depression. 7. Status post appendectomy. Plan: 1. Continue using PAP equipment every night for the whole night. I changed parameter in [employer] to the range 5 to 12 cm of water. 2. Sleep hygiene with regular time in bed for at least 7.5-8 hours 3. PAP unit should stay lower then position of the head. 4. Advised patient to remove all remaining water from humidifier canister daily and make it dry after each usage. Refill canister with fresh distilled water before each usage. 5. Watching weight. 6. Precautions related to driving. No driving if feel any sleepiness. 7. I will maintain prescription for PAP supplies including mask, tube, filters. 8. Follow up visit in 4 months or earlier if patient has any problems. Thank you very much for allowing me to participate in the management of your patient. Gary Alvarado MD, PhD, FAASM. Diplomat of [place] [employer], Sleep Medicine Board by [place] [employer] Crime Scene Analyst of [facility] [place] Objective - Vital Signs Vital Signs: Vital Signs Temp 99.2 F 01/31/24 16:28 Pulse 97 01/31/24 16:28 Resp 14 01/31/24 16:28 BP 130/88 01/31/24 16:28 Pulse Ox 96 01/31/24 16:28 FiO2 Home Medications: Home Medications Medication Instructions Recorded Confirmed Type Desvenlafaxine [Pristiq ER] 100 mg PO DAILY 10/14/23 10/14/23 History Furosemide [Lasix] 20 mg PO BID #6 tab 10/14/23 Rx Montelukast [Singulair] 10 mg PO DAILY 10/14/23 10/14/23 History amLODIPine [Norvasc] 10 mg PO DAILY 10/14/23 10/14/23 History busPIRone HCL 5 mg PO BID 10/14/23 10/14/23 History hydrOXYzine HCL [Atarax] 25 mg PO HS 10/14/23 10/14/23 History
== END ==
LOC: 3 N SLEEP 16:20
PROVIDERS: ATTEND Internal Medicine
CPT/HCPCS: 99212

== ENCOUNTER → 2024-06-05 | Outpatient (CLI) | payer BC ==
[2024-06-05 14:19] VITALS: BP 140/91; PULSE 99; RESP 18; TEMP 98.5
--- NOTE | 2024-06-05 14:34 | P.PROGSL ---
Subjective DATE: 06/05/2024 FOLLOW UP VISIT. Patient with obstructive sleep apnea hypopnea syndrome return to sleep center for follow-up visit. Information from previous visit have been reviewed. Patient is using PAP equipment every night for the whole night, getting PAP supplies in time. The patient does not have significant problems with the mask, PAP unit and humidification. [place] sleepiness scale is 8, which is normal. I checked information from PAP unit. PAP unit pressure 5-12, average 9.6 cm H2O. Usage is 100% for more then 4 hours, average 7.2 hours per night. Leak is in normal range 3.7 l/m. Apnea Hypopnea Index is 7.0 which include 3.4 centrals and 2.9 obstructive. MEDICATIONS have been reviewed, please see below. During physical exam: GENERAL: A pleasant patient without any distress. VITAL SIGNS: Please see below, weight is 201.4 lbs. HEENT: PERRLA, EOMI.low position of soft palate, Mallapati 4 . NECK: Supple. No JVD. LUNGS: Clear to percussion and to auscultation. Good air exchange. No wheezing or rhonchi. HEART: S1, S2 regular. ABDOMEN: Soft and nontender.[] EXTREMITIES: No clubbing or cyanosis. SEED CONE PICKER: Awake, alert, and oriented x3. No focal deficit. Impressions: 1. Obstructive sleep apnea-hypopnea syndrome. Patient demonstrated great compliance with treatment, benefiting from treatment. Few central events while on treatment with CPAP. 2. Mild obesity, BMI 33.9. 3. Hypertension. 4. History of headaches. 5. History of anxiety. 6. History of sinus problems. 7. History of depression. 8. Status post appendectomy. Plan: 1. Continue using PAP equipment every night for the whole night. 2. Sleep hygiene with regular time in bed for at least 7.5-8 hours 3. PAP unit should stay lower then position of the head. 4. Advised patient to remove all remaining water from humidifier canister daily and make it dry after each usage. Refill canister with fresh distilled water before each usage. 5. Watching and losing weight. 6. Precautions related to driving. No driving if feel any sleepiness. 7. I will maintain prescription for PAP supplies including mask, tube, filters. 8. Follow up visit in 8 months or earlier if patient has any problems. Thank you very much for allowing me to participate in the management of your patient. Gary Alvarado MD, PhD, FAASM. Diplomat of [place] [employer], Sleep Medicine Board by [place] [employer] Forest Management Professor of [facility] [place] Objective - Vital Signs Vital Signs: Vital Signs Temp 98.5 F 06/05/24 14:17 Pulse 99 06/05/24 14:17 Resp 18 06/05/24 14:17 BP 140/91 06/05/24 14:17 Pulse Ox 95 06/05/24 14:17 FiO2 Intake & Output 06/04/24 06/05/24 06/05/24 18:59 06:59 18:59 Weight 91.285 kg Home Medications: Home Medications Medication Instructions Recorded Confirmed Type Desvenlafaxine [Pristiq ER] 100 mg PO DAILY 10/14/23 06/05/24 History busPIRone HCL 200 mg PO BID 10/14/23 06/05/24 History hydrOXYzine HCL [Atarax] 100 mg PO HS 10/14/23 06/05/24 History Losartan Potassium 50 mg PO DAILY 04/10/24 06/05/24 History
== END ==
LOC: 3 N SLEEP 14:04
PROVIDERS: ATTEND Internal Medicine
DX: G47.33 Obstructive sleep apnea (adult) (pediatric) (principal); E66.01 Morbid (severe) obesity due to excess calories; F32.A Depression, unspecified; I10 Essential (primary) hypertension; F41.9 Anxiety disorder, unspecified; Z87.09 Personal history of other diseases of the respiratory system; Z86.69 Personal history of other diseases of the nervous system and sense organs; Z68.33 Body mass index [BMI] 33.0-33.9, adult; Z90.89 Acquired absence of other organs; Z88.8 Allergy status to other drugs, medicaments and biological substances
CPT/HCPCS: 99212